=== PATIENT | female | born 1995 | race Caucasian/White ===

== ENCOUNTER 2019-02-15 15:05 | Emergency (ER) | payer OTHER, SELFPAY ==
[2019-02-15] MEDS ORDERED: KETOROLAC 30 MG/ML INJ ONE (15:33)
[2019-02-15] MEDS ORDERED: ONDANSETRON 4 MG/2 ML VIAL ONE (15:33)
[2019-02-15] MEDS ORDERED: NA CHLORIDE 0.9% 1,000 ML ONE (15:33)
[2019-02-15 15:45] LABS: Absolute Lymphocytes (CBC) 1.6 K/uL (0.7-4.9); Basophils % 0.2 % (0-1.3); Hematocrit 40.6 % (36.0-45.0); Lymphocytes % 16.8 % (15.3-44.8); MPV 7.6 fL (7.6-11.3); RBC Red Blood Cell Count 4.89 M/uL (3.86-4.86)
[2019-02-15 16:01] LABS: ALT/SGPT 40 U/L (12-78); AST/SGOT 22 U/L (15-37); Albumin 3.7 g/dL (3.4-5.0); Alkaline Phosphatase 59 U/L (45-117); BUN Blood Urea Nitrogen 11 mg/dL (7-18); Bicarbonate 27 mmol/L (21-32); Bilirubin Direct 0.1 mg/dL (0-0.2); Bilirubin Total 0.4 mg/dL (0.2-1.0); Glucose Level 90 mg/dL (74-106); Lipase 110 U/L (73-393); Potassium 3.5 mmol/L (3.5-5.1); Sodium Level 138 mmol/L (136-145)
--- NOTE | 2019-02-15 17:02 | RAD REPORT ---
EXAM DESCRIPTION: US - Abdomen Exam Limited - 02/15/2019 4:29 pm CLINICAL HISTORY: ABD PAIN COMPARISON: <Comparisons> FINDINGS: The gallbladder demonstrates no gallstones. No pericholecystic fluid or gallbladder wall t hickening. The common bile duct is normal measuring 3 mm. The liver demonstrates no findings of intrahepatic biliary dilatation. IMPRESSION: Unremarkable examination.
--- NOTE | 2019-02-15 17:21 | EDPHYS ---
Physician Documentation [facility] Name: Mara Farris Age: 23 yrs Sex: Female : 1995 Arrival Date: 02/15/2019 Time: 15:06 Bed 7 Private MD: None, None ED Physician Bryan Mclain HPI: 02/15 15:31 This 23 yrs old Female presents to ER via Ambulatory with complaints of kb Abdominal Pain, Vomiting. 15:31 The patient presents with abdominal pain in the right upper quadrant. Onset: The kb symptoms/episode began/occurred last night. The symptoms radiate to right back. Associated signs and symptoms: Pertinent positives: nausea, vomiting, and diarrhea. The symptoms are described as constant. Modifying factors: The symptoms are alleviated by nothing, the symptoms are aggravated by nothing. Severity of pain: At its worst the pain was severe in the emergency department the pain has improved moderately. The patient has not experienced similar symptoms in the past. The patient has not recently seen a physician. 15:33 Pt reports she has had digestive issues for a few months. States "everything I eat goes kb right through me." Reports she started having severe upper abd pain with nausea and vomiting last night. . 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 - Social history:: Smoking status: Patient uses tobacco products, denies chronic smoking, but will smoke occasionally. - Ebola Screening: : No symptoms or risks identified at this time. ROS: 15:30 Constitutional: Negative for fever, chills, and weight loss, ENT: Negative for injury, kb pain, and discharge, Neck: Negative for injury, pain, and swelling, Cardiovascular: Negative for chest pain, palpitations, and edema, Respiratory: Negative for shortness of breath, cough, wheezing, and pleuritic chest pain, Back: Negative for injury and pain, : Negative for injury, bleeding, discharge, and swelling, MS/Extremity: Negative for injury and deformity, Skin: Negative for injury, rash, and discoloration, Neuro: Negative for headache, weakness, numbness, tingling, and seizure. 15:30 Abdomen/GI: Positive for abdominal pain, nausea, vomiting, and diarrhea, Negative for constipation, abdominal cramps, abdominal distension, anorexia. Exam: 15:30 Constitutional: This is a well developed, well nourished patient who is awake, alert, kb and in no acute distress. Head/Face: Normocephalic, atraumatic. ENT: Nares patent. No nasal discharge, no septal abnormalities noted. Tympanic membranes are normal and external auditory canals are clear. Oropharynx with no redness, swelling, or masses, exudates, or evidence of obstruction, uvula midline. Mucous membranes moist. Neck: Trachea midline, no thyromegaly or masses palpated, and no cervical lymphadenopathy. Supple, full range of motion without nuchal rigidity, or vertebral point tenderness. No Meningismus. Chest/axilla: Normal chest wall appearance and motion. Nontender with no deformity. No lesions are appreciated. Cardiovascular: Regular rate and rhythm with a normal S1 and S2. No gallops, murmurs, or rubs. Normal PMI, no JVD. No pulse deficits. Respiratory: Lungs have equal breath sounds bilaterally, clear to auscultation and percussion. No rales, rhonchi or wheezes noted. No increased work of breathing, no retractions or nasal flaring. Back: No spinal tenderness. No costovertebral tenderness. Full range of motion. Skin: Warm, dry with normal turgor. Normal color with no rashes, no lesions, and no evidence of cellulitis. MS/ Extremity: Pulses equal, no cyanosis. Neurovascular intact. Full, normal range of motion. Neuro: Awake and alert, GCS 15, oriented to person, place, time, and situation. Cranial nerves II-XII grossly intact. Motor strength 5/5 in all extremities. Sensory grossly intact. Cerebellar exam normal. Normal gait. 15:30 Abdomen/GI: Inspection: abdomen appears normal, Bowel sounds: normal, in all quadrants, Palpation: soft, in all quadrants, moderate abdominal tenderness, in the right upper quadrant. Vital Signs: 15:19 BP 113 / 68; Pulse 80; Resp 16; Temp 97.5; Pulse Ox 98% on R/A; Weight 104.33 kg; la1 Height 5 ft. 6 in. (167.64 cm); 16:30 BP 118 / 72; Pulse 69; Resp 16; Pulse Ox 98% ; Pain 2/10; jl7 17:36 BP 113 / 66; Pulse 61; Resp 16 S; Pulse Ox 96% on R/A; Pain 7/10; jl7 15:19 Body Mass Index 37.12 (104.33 kg, 167.64 cm) la1 MDM: 15:25 Patient medically screened. kb 15:30 Data reviewed: vital signs, nurses notes. Data interpreted: Pulse oximetry: on room air kb is 98 %. Interpretation: normal. 17:05 Counseling: I had a detailed discussion with the patient and/or guardian regarding: the kb historical points, exam findings, and any diagnostic results supporting the discharge/admit diagnosis, lab results, radiology results, the need for outpatient follow up, a family practitioner, to return to the emergency department if symptoms worsen or persist or if there are any questions or concerns that arise at home. 02/15 15:28 Order name: Basic Metabolic Panel; Complete Time: 16:13 kb 02/15 15:28 Order name: CBC with Diff; Complete Time: 15:52 kb 02/15 15:28 Order name: Hepatic Function; Complete Time: 16:13 kb 02/15 15:28 Order name: Lipase; Complete Time: 16:13 kb 02/15 15:33 Order name: Urine Dipstick--Ancillary (enter results) em1 02/15 15:33 Order name: Urine --Ancillary (enter results) em1 02/15 15:28 Order name: IV Saline Lock; Complete Time: 15:46 kb 02/15 15:28 Order name: Labs collected and sent; Complete Time: 15:46 kb 02/15 15:28 Order name: Urine Dipstick-Ancillary (obtain specimen); Complete Time: 15:32 kb 02/15 15:28 Order name: US Abdomen Limited; Complete Time: 17:03 kb 02/15 17:05 Order name: PO challenge; Complete Time: 17:31 kb Administered Medications: 15:43 Drug: NS 0.9% 1000 ml Route: IV; Rate: 1000 ml; Site: right antecubital; jl7 16:30 Follow up: Response: No adverse reaction; IV Status: Completed infusion; IV Intake: jl7 1000ml 15:43 Drug: Zofran 4 mg Route: IVP; Site: right antecubital; jl7 16:00 Follow up: Response: No adverse reaction; Nausea is decreased jl7 15:46 Drug: TORadol - Ketorolac 15 mg Route: IVP; Site: right antecubital; jl7 16:00 Follow up: Response: No adverse reaction; Pain is decreased jl7 Disposition: 02/15/19 17:19 Discharged to Home. Impression: Upper abdominal pain, unspecified, Diarrhea, unspecified, Nausea with vomiting, unspecified. - Condition is Stable. - Discharge Instructions: Food Choices to Help Relieve Diarrhea, Adult, Nausea and Vomiting, Adult, Kddl-go-Hhme, Abdominal Pain, Adult, Hclz-aq-Exoh, Diarrhea, Adult, Kpqu-bc-Ynec. - Prescriptions for Bentyl 20 mg Oral Tablet - take 1 tablet by ORAL route every 6 hours As needed; 20 tablet. Zofran 4 mg Oral Tablet - take 1 tablet by ORAL route every 6 hours As needed; 20 tablet. - Medication Reconciliation Form, Thank You Letter, Antibiotic Education, Prescription Opioid Use form. - Follow up: Emergency Department; When: As needed; Reason: Worsening of condition. Follow up: Private Physician; When: 2 - 3 days; Reason: Recheck today's complaints, Continuance of care, Re-evaluation by your physician. Addendum: 02/17/2019 09:58 Co-signature as Attending Physician, Bryan Mclain MD I agree with the assessment and c molina plan of care. Signatures: Dispatcher [employer] EDMS Ashley Ivan, DISPENSARY CLERK-C DISPENSARY CLERK-Ckb Bryan Mclain MD MD cha Attema, Lee, RN RN la1 Shreya Maldonado RN RN jl7 Corrections: (The following items were deleted from the chart) 02/15 15:34 15:31 Onset: The symptoms/episode began/occurred just prior to arrival, kb rodolfo 17:38 17:19 02/15/2019 17:19 Discharged to Home. Impression: Upper abdominal pain, jl7 unspecified; Diarrhea, unspecified; Nausea with vomiting, unspecified. Condition is Stable. Forms are Medication Reconciliation Form, Thank You Letter, Antibiotic Education, Prescription Opioid Use. Follow up: Emergency Department; When: As needed; Reason: Worsening of condition. Follow up: Private Physician; When: 2 - 3 days; Reason: Recheck today's complaints, Continuance of care, Re-evaluation by your physician. kb
--- NOTE | 2019-02-15 17:21 | ER ---
Nurse's Notes [facility] Name: Mara Farris Age: 23 yrs Sex: Female : 1995 Arrival Date: 02/15/2019 Time: 15:06 Bed 7 Private MD: None, None Diagnosis: Upper abdominal pain, unspecified;Diarrhea, unspecified;Nausea with vomiting, unspecified Presentation: 02/15 15:18 Presenting complaint: Patient states: Abd pain, N/V/D for the last couple days worst la1 starting last night. Transition of care: patient was not received from another setting of care. Onset of symptoms was February 15, 2019. Risk Assessment: Do you want to hurt yourself or someone else? Patient reports no desire to harm self or others. Initial Sepsis Screen: Does the patient meet any 2 criteria? No. Patient's initial sepsis screen is negative. Does the patient have a suspected source of infection? No. Patient's initial sepsis screen is negative. Care prior to arrival: None. 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 - Social history:: Smoking status: Patient uses tobacco products, denies chronic smoking, but will smoke occasionally. - Ebola Screening: : No symptoms or risks identified at this time. Screenin:30 Abuse screen: Denies threats or abuse. Denies injuries from another. Nutritional jl7 screening: No deficits noted. Tuberculosis screening: No symptoms or risk factors identified. Fall Risk IV access (20 points). Assessment: 15:30 General: Appears in no apparent distress. uncomfortable, Behavior is calm, cooperative, jl7 appropriate for age. Pain: Complains of pain in right upper quadrant Pain currently is 4 out of 10 on a pain scale. at worst was 10 out of 10 on a pain scale. Quality of pain is described as aching. Neuro: Level of Consciousness is awake, alert, obeys commands, Oriented to person, place, time, situation. Cardiovascular: Patient's skin is warm and dry. Respiratory: Airway is patent Respiratory effort is even, unlabored, Respiratory pattern is regular, symmetrical. GI: Abdomen is round non-distended, Stools are reported to be diarrhea. Bowel sounds present X 4 quads. Abd is soft X 4 quads Abdomen is tender to palpation in right upper quadrant and left upper quadrant Reports nausea, vomiting. : No signs and/or symptoms were reported regarding the genitourinary system. EENT: No signs and/or symptoms were reported regarding the EENT system. Derm: Skin is pink, warm \T\ dry. 16:30 Reassessment: Patient appears in no apparent distress at this time. Patient and/or jl7 family updated on plan of care and expected duration. Pain level reassessed. Patient is alert, oriented x 3, equal unlabored respirations, skin warm/dry/pink. Vital Signs: 15:19 BP 113 / 68; Pulse 80; Resp 16; Temp 97.5; Pulse Ox 98% on R/A; Weight 104.33 kg; la1 Height 5 ft. 6 in. (167.64 cm); 16:30 BP 118 / 72; Pulse 69; Resp 16; Pulse Ox 98% ; Pain 2/10; jl7 17:36 BP 113 / 66; Pulse 61; Resp 16 S; Pulse Ox 96% on R/A; Pain 7/10; jl7 15:19 Body Mass Index 37.12 (104.33 kg, 167.64 cm) la1 ED Course: 15:06 Patient arrived in ED. ag5 15:07 None, None is Private Physician. ag5 15:18 Triage completed. la1 15:19 Arm band placed on left wrist. la1 15:23 Ashley Ivan FNP-C is [facility]. kb 15:23 Bryan Mclain MD is Attending Physician. kb 15:27 Shreya Maldonado RN is Primary Nurse. jl7 15:27 Urine collected: clean catch specimen, cloudy, qian colored. jb1 15:30 Patient has correct armband on for positive identification. Placed in gown. Bed in low jl7 position. Call light in reach. Side rails up X 1. Pulse ox on. NIBP on. Warm blanket given. 15:51 Initial lab(s) drawn, Repeat lab(s) drawn. sent to lab. Inserted saline lock: 22 gauge jb1 in right antecubital area, using aseptic technique. Blood collected. 16:28 Ultrasound completed. Patient tolerated well. sg3 16:31 US Abdomen Limited In Process Unspecified. EDMS 17:37 No provider procedures requiring assistance completed. IV discontinued, intact, jl7 bleeding controlled, No redness/swelling at site. Pressure dressing applied. Administered Medications: 15:43 Drug: NS 0.9% 1000 ml Route: IV; Rate: 1000 ml; Site: right antecubital; jl7 16:30 Follow up: Response: No adverse reaction; IV Status: Completed infusion; IV Intake: jl7 1000ml 15:43 Drug: Zofran 4 mg Route: IVP; Site: right antecubital; jl7 16:00 Follow up: Response: No adverse reaction; Nausea is decreased jl7 15:46 Drug: TORadol - Ketorolac 15 mg Route: IVP; Site: right antecubital; jl7 16:00 Follow up: Response: No adverse reaction; Pain is decreased jl7 Intake: 16:30 IV: 1000ml; Total: 1000ml. jl7 Outcome: 17:19 Discharge ordered by MD. reynolds 17:37 Discharged to home ambulatory. jl7 17:37 Condition: stable 17:37 Discharge instructions given to patient, Instructed on discharge instructions, follow up and referral plans. medication usage, Demonstrated understanding of instructions, follow-up care, medications. 17:38 Patient left the ED. jl7 Signatures: Dispatcher [employer] EDMS Cody Ortiz jb1 Ashley Ivan, DRAFTER REFRIGERATION-C DRAFTER REFRIGERATION-Robson Crocker RN RN la1 Shreya Maldonado RN RN jl7 Juliana Koenig sg3 Delaney Slater [facility]
[2019-02-15 20:27] LABS: Urine Blood NEGATIVE (NEG); Urine Glucose NEGATIVE (NEG); Urine Protein TRACE (NEG)
== END 2019-02-15 17:38 | disposition home or self-care (01) ==
LOC: ER 15:05
DX: R10.11 Right upper quadrant pain (principal); R11.2 Nausea with vomiting, unspecified; R19.7 Diarrhea, unspecified; Z72.0 Tobacco use
CPT/HCPCS: 36415; 76705; 80048; 80076; 81003; 81025; 83690; 85025; 96361; 96374; 96375; 99284; J2405; J7030

== ENCOUNTER 2019-03-29 16:44 | Emergency (ER) | payer SELFPAY ==
--- NOTE | 2019-03-29 18:13 | ER ---
Nurse's Notes [facility] Name: Mara Farris Age: 24 yrs Sex: Female : 1995 Arrival Date: 03/29/2019 Time: 16:46 Bed 13 Private MD: Diagnosis: Foreign body in stomach-tongue ring Presentation: 03/29 16:50 Presenting complaint: Patient states: The ball of my tongue ring came off yesterday but la1 I left it in today I took a drink and accidently swallowed the top ball and the bar. Transition of care: patient was not received from another setting of care. Onset of symptoms was March 29, 2019. Risk Assessment: Do you want to hurt yourself or someone else? Patient reports no desire to harm self or others. Initial Sepsis Screen: Does the patient meet any 2 criteria? No. Patient's initial sepsis screen is negative. Does the patient have a suspected source of infection? No. Patient's initial sepsis screen is negative. Care prior to arrival: None. 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 - Social history:: Smoking status: Patient uses tobacco products, denies chronic smoking, but will smoke occasionally. - Ebola Screening: : No symptoms or risks identified at this time. Screenin:55 Abuse screen: Denies threats or abuse. Nutritional screening: No deficits noted. rb1 Tuberculosis screening: No symptoms or risk factors identified. Fall Risk None identified. Assessment: 16:55 General: Appears in no apparent distress. comfortable, Behavior is calm, cooperative. rb1 Pain: Complains of pain in epigastric area Pain currently is 3 out of 10 on a pain scale. Pain began 40 minutes ago. Neuro: Level of Consciousness is awake, alert, obeys commands, Oriented to person, place, time, situation. Cardiovascular: Capillary refill < 3 seconds is brisk in bilateral fingers. Respiratory: Airway is patent Respiratory effort is even, unlabored, Respiratory pattern is regular, symmetrical. GI: No signs and/or symptoms were reported involving the gastrointestinal system. : No signs and/or symptoms were reported regarding the genitourinary system. Derm: Skin is pink, warm \T\ dry. 17:55 Reassessment: Patient appears in no apparent distress at this time. No changes from rb1 previously documented assessment. Sister at bedside. 18:35 Reassessment: Patient appears in no apparent distress at this time. Patient and/or rb1 family updated on plan of care and expected duration. Pain level reassessed. Patient is alert, oriented x 3, equal unlabored respirations, skin warm/dry/pink. Pt. is anxious about being transferred. Educated the pt. on the need to be transferred and why. Pt. verbalized understanding. 18:48 Reassessment: Called report to BRANDO Neri at [facility]. Information from the [facility] was rb1 given. All questions asked and answered. 19:31 Reassessment: Patient is alert, oriented x 3, equal unlabored respirations, skin lp1 warm/dry/pink. [facility] at bedside for transfer. Vital Signs: 16:49 BP 122 / 88; Pulse 91; Resp 16; Temp 97.4; Pulse Ox 100% on R/A; Weight 108.86 kg; la1 Height 5 ft. 6 in. (167.64 cm); 17:55 BP 125 / 93; Pulse 78; Resp 19; Pulse Ox 98% on R/A; Pain 3/10; rb1 18:50 BP 107 / 63; Pulse 90; Resp 17; Temp 97.4(O); Pulse Ox 97% on R/A; Pain 3/10; rb1 16:49 Body Mass Index 38.74 (108.86 kg, 167.64 cm) la1 ED Course: 16:46 Patient arrived in ED. as 16:47 Ashley Ivan FNP-C is PHCP. kb 16:47 Faiza Barone MD is Attending Physician. kb 16:49 Arm band placed on left wrist. la1 16:51 Triage completed. la1 16:54 Nkechi Hummel, BRANOD is Primary Nurse. rb1 16:55 Patient has correct armband on for positive identification. Bed in low position. Call rb1 light in reach. Side rails up X 1. Pulse ox on. NIBP on. 18:03 initiated a transfer with Mikel Valentino from the [facility] transfer center. eb 18:10 X-ray completed. Portable x-ray completed in exam room. Patient tolerated procedure tm4 well. 18:13 Abdomen 1 View (KUB) XRAY In Process Unspecified. EDMS 18:14 Chest Single View XRAY In Process Unspecified. EDMS 18:14 connected the GI cathodic protection technician for [facility] with Ashely DIAMOND MERCHANT for patient transfer eb consultation. 18:23 connected the hospitalist cathodic protection technician Dr. Nuñez from [facility] with Ashley DIAMOND MERCHANT for eb patient transfers consultation. 18:30 Inserted saline lock: 22 gauge in right antecubital area, using aseptic technique. rb1 Blood collected. 18:34 administrative approval given by Mikel Valentino, patient has been accepted to [facility] bed 1550/ Joaquin Pitts has accepted the patient in transfer/ report to be called to [phone]. 18:58 Abdomen 1 View (KUB) XRAY In Process Unspecified. EDMS 19:30 No provider procedures requiring assistance completed. Patient transferred, IV remains lp1 in place. Administered Medications: No medications were administered Outcome: 18:12 ER care complete, transfer ordered by . kb 19:31 Transferred by ground EMS to [facility], Transfer form completed. lp1 X-rays sent w/ patient. 19:31 Condition: stable 19:31 Instructed on the need for transfer. 19:31 Patient left the ED. lp1 Signatures: Dispatcher [employer] EDMS Ashley Ivan, STRUCTURAL STEEL WORKER-C STRUCTURAL STEEL WORKER-Delicia Cyr tm4 Ml Gomez Laura, RN RN lp1 Robson Dia RN RN la1 Nkechi Hummel, RN RN rb1 Marcia Mckeon
--- NOTE | 2019-03-29 18:13 | EDPHYS ---
Physician Documentation [facility] Name: Mara Farris Age: 24 yrs Sex: Female : 1995 Arrival Date: 03/29/2019 Time: 16:46 Bed 13 Private MD: ED Physician Faiza Barone HPI: 03/29 17:42 This 24 yrs old Female presents to ER via Ambulatory with complaints of kb Swallowed Foreign Body - Tongue Ring. 17:43 The patient or guardian reports the patient has a suspected foreign body, tongue ring. kb The reported likely foreign body is piece of jewelry. Onset: The symptoms/episode began/occurred just prior to arrival. Current symptoms: none. Treatment Prior to Arrival: none. The patient has not experienced similar symptoms in the past. The patient has not recently seen a physician. Pt reports she lost the ball of her tongue ring yesterday, but left the bar in. Today was drinking water and the bar and top ball went down. . 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 - Social history:: Smoking status: Patient uses tobacco products, denies chronic smoking, but will smoke occasionally. - Ebola Screening: : No symptoms or risks identified at this time. ROS: 17:41 Constitutional: Negative for fever, chills, and weight loss, Neck: Negative for injury, kb pain, and swelling, Cardiovascular: Negative for chest pain, palpitations, and edema, Respiratory: Negative for shortness of breath, cough, wheezing, and pleuritic chest pain, Abdomen/GI: Negative for abdominal pain, nausea, vomiting, diarrhea, and constipation, Back: Negative for injury and pain, MS/Extremity: Negative for injury and deformity, Skin: Negative for injury, rash, and discoloration, Neuro: Negative for headache, weakness, numbness, tingling, and seizure. Exam: 17:41 Constitutional: This is a well developed, well nourished patient who is awake, alert, kb and in no acute distress. Head/Face: Normocephalic, atraumatic. ENT: Nares patent. No nasal discharge, no septal abnormalities noted. Tympanic membranes are normal and external auditory canals are clear. Oropharynx with no redness, swelling, or masses, exudates, or evidence of obstruction, uvula midline. Mucous membranes moist. Neck: Trachea midline, no thyromegaly or masses palpated, and no cervical lymphadenopathy. Supple, full range of motion without nuchal rigidity, or vertebral point tenderness. No Meningismus. Chest/axilla: Normal chest wall appearance and motion. Nontender with no deformity. No lesions are appreciated. Cardiovascular: Regular rate and rhythm with a normal S1 and S2. No gallops, murmurs, or rubs. Normal PMI, no JVD. No pulse deficits. Respiratory: Lungs have equal breath sounds bilaterally, clear to auscultation and percussion. No rales, rhonchi or wheezes noted. No increased work of breathing, no retractions or nasal flaring. Abdomen/GI: Soft, non-tender, with normal bowel sounds. No distension or tympany. No guarding or rebound. No evidence of tenderness throughout. Back: No spinal tenderness. No costovertebral tenderness. Full range of motion. Skin: Warm, dry with normal turgor. Normal color with no rashes, no lesions, and no evidence of cellulitis. MS/ Extremity: Pulses equal, no cyanosis. Neurovascular intact. Full, normal range of motion. Neuro: Awake and alert, GCS 15, oriented to person, place, time, and situation. Cranial nerves II-XII grossly intact. Motor strength 5/5 in all extremities. Sensory grossly intact. Cerebellar exam normal. Normal gait. Vital Signs: 16:49 BP 122 / 88; Pulse 91; Resp 16; Temp 97.4; Pulse Ox 100% on R/A; Weight 108.86 kg; la1 Height 5 ft. 6 in. (167.64 cm); 17:55 BP 125 / 93; Pulse 78; Resp 19; Pulse Ox 98% on R/A; Pain 3/10; rb1 18:50 BP 107 / 63; Pulse 90; Resp 17; Temp 97.4(O); Pulse Ox 97% on R/A; Pain 3/10; rb1 16:49 Body Mass Index 38.74 (108.86 kg, 167.64 cm) la1 MDM: 16:52 Patient medically screened. kb 17:42 Data reviewed: vital signs, nurses notes. Data interpreted: Pulse oximetry: on room air kb is 100 %. Interpretation: normal. 18:05 ED course: Discussed x-ray with Dr Barone. Transfer initiated to [facility] for GI. kb 18:11 Counseling: I had a detailed discussion with the patient and/or guardian regarding: the kb historical points, exam findings, and any diagnostic results supporting the discharge/admit diagnosis, radiology results, the need to transfer to another facility, [facility] does not immediately have the required specialist. 18:17 ED course: [facility] accepts pt for consult (Dr Daniel). Wants repeat KUB to see kb if FB moves down prior to transfer. 18:27 ED course: Dr Nuñez accepts pt for transfer. kb 03/29 18:25 Order name: CBC with Diff; Complete Time: 18:54 kb 03/29 18:25 Order name: Basic Metabolic Panel; Complete Time: 18:54 kb 03/29 16:52 Order name: Abdomen 1 View (KUB) XRAY; Complete Time: 18:56 kb 03/29 16:52 Order name: Chest Single View XRAY; Complete Time: 18:59 kb 03/29 18:21 Order name: IV Start; Complete Time: 18:34 kb 03/29 18:27 Order name: Abdomen 1 View (KUB) XRAY; Complete Time: 19:04 kb Administered Medications: No medications were administered Disposition: 03/30 07:14 Co-signature as Attending Physician, Faiza Barone MD. ma2 Disposition: 03/29/19 18:12 Transfer ordered to [facility]. Diagnosis is Foreign body in stomach - tongue ring. - Reason for transfer: Higher level of care. - Accepting physician is [facility]. - Condition is Stable. - Problem is new. - Symptoms are unchanged. Signatures: Dispatcher [employer] EDMS Ashley Ivan, ANNA BARGER-Christie Lopez, RN RN lp1 Robson Dia RN RN la1 Faiza Barone MD MD ma2 Corrections: (The following items were deleted from the chart) 03/29 18:28 18:17 ED course: [facility] accepts pt for consult (Dr Daniel). kb kb 19:31 18:12 03/29/2019 18:12 Transfer ordered to [facility]. Diagnosis is lp1 Foreign body in stomach - tongue ring. Reason for transfer: Higher level of care. Accepting physician is [facility]. Condition is Stable. Problem is new. Symptoms are unchanged. kb
[2019-03-29 18:40] LABS: Absolute Lymphocytes (CBC) 2.2 K/uL (0.7-4.9); Basophils % 0.6 % (0-1.3); Hematocrit 40.8 % (36.0-45.0); Lymphocytes % 21.4 % (15.3-44.8); MPV 7.8 fL (7.6-11.3); RBC Red Blood Cell Count 4.98 M/uL (3.86-4.86)
[2019-03-29 18:52] LABS: Potassium 3.8 mmol/L (3.5-5.1)
--- NOTE | 2019-03-29 18:52 | RAD REPORT ---
EXAM DESCRIPTION: RAD - Abdomen 1 View (KUB) - 03/29/2019 6:12 pm CLINICAL HISTORY: fb Pain COMPARISON: <Comparisons> FINDINGS: The bowel gas pattern is non-obstructive. No evidence of free air or pneumatosis. No suspi cious calcifications. Metallic foreign body projects over the distal stomach.
--- NOTE | 2019-03-29 18:53 | RAD REPORT ---
EXAM DESCRIPTION: RAD - Chest Single View - 03/29/2019 6:12 pm CLINICAL HISTORY: fb Chest pain. COMPARISON: CHEST PA AND LAT 2 VIEW dated 01/21/2014 FINDINGS: Portable technique limits examination quality. The lungs are grossly clear. The heart is normal in size. No displaced fractures. IMPRESSION: No acute intrathoracic process suspected.
--- NOTE | 2019-03-29 19:01 | RAD REPORT ---
EXAM DESCRIPTION: RAD - Abdomen 1 View (KUB) - 03/29/2019 6:56 pm CLINICAL HISTORY: FB;Abd pain Pain COMPARISON: <Comparisons> FINDINGS: The bowel gas pattern is non-obstructive. No evidence of free air or pneumatosis. No suspi cious calcifications. A metallic foreign body appears to be present in the distal stomach.
[2019-03-29 19:44] VITALS: TEMP 97.4
[2019-03-29 19:48] VITALS: BP 107/63; O2SAT 97
== END 2019-03-29 19:31 | disposition short-term general hospital (02) ==
LOC: ER 16:44
DX: T18.2XXA Foreign body in stomach, initial encounter (principal); X58.XXXA Exposure to other specified factors, initial encounter; Z72.0 Tobacco use
CPT/HCPCS: 36415; 71045; 74018; 80048; 85025; 99285

== ENCOUNTER 2019-05-15 09:21 | Emergency (ER) | payer SELFPAY ==
--- NOTE | 2019-05-15 10:53 | EDPHYS ---
Physician Documentation [facility] Name: Mara Farris Age: 24 yrs Sex: Female : 1995 Arrival Date: 05/15/2019 Time: 09:27 Bed 11 Private MD: ED Physician Jacky White HPI: 05/15 10:11 This 24 yrs old Female presents to ER via Ambulatory with complaints of Sore jmm Throat, Cough. 10:11 The patient presents with sore throat. Onset: The symptoms/episode began/occurred jmm gradually, 2 day(s) ago. Modifying factors: The symptoms are alleviated by nothing, the symptoms are aggravated by nothing. Associated signs and symptoms: Pertinent positives: chills, cough. This is a 24 year old female with no chronic medical conditions that presents to the ED with complaints of sore throat, cough, congestion beginning 2 days ago. Patient states family members have been recently diagnosed with tonsillitis. . 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 - Social history:: Smoking status: Patient uses tobacco products, denies chronic smoking, but will smoke occasionally. - Ebola Screening: : No symptoms or risks identified at this time. ROS: 10:11 Cardiovascular: Negative for chest pain, palpitations, and edema. jmm 10:11 Constitutional: Positive for chills. 10:11 ENT: Positive for sore throat. 10:11 Respiratory: Positive for cough. 10:11 Abdomen/GI: Negative for abdominal pain, nausea and vomiting, diarrhea. 10:11 All other systems are negative. Exam: 10:11 Constitutional: This is a well developed, well nourished patient who is awake, alert, jmm and in no acute distress. Head/Face: atraumatic. Eyes: EOMI, no conjunctival erythema appreciated 10:11 Chest/axilla: Normal chest wall appearance and motion. 10:11 Abdomen/GI: Non distended, soft Back: Normal ROM Skin: General appearance color normal MS/ Extremity: Moves all extremities, no obvious deformities appreciated, no edema noted to the lower extremities Neuro: Awake and alert, normal gait Psych: Behavior is normal, Mood is normal, Patient is cooperative and pleasant 10:11 ENT: TM's: are normal, Posterior pharynx: Uvula: normal, midline, erythema, that is moderate. 10:11 Neck: ROM/movement: is normal. 10:11 Cardiovascular: Rate: normal, Rhythm: regular. 10:11 Respiratory: the patient does not display signs of respiratory distress, Respirations: normal, Breath sounds: are clear throughout. Vital Signs: 09:45 BP 124 / 71; Pulse 80; Resp 16 S; Temp 98.4(TE); Pulse Ox 97% on R/A; Weight 108.86 kg aa5 (R); Height 5 ft. 6 in. (167.64 cm) (R); Pain 410; 09:45 Body Mass Index 38.74 (108.86 kg, 167.64 cm) aa5 MDM: 10:11 Patient medically screened. [facility] 10:50 Data reviewed: vital signs, nurses notes. Counseling: I had a detailed discussion with chinyere the patient and/or guardian regarding: the historical points, exam findings, and any diagnostic results supporting the discharge/admit diagnosis, lab results, the need for outpatient follow up, to return to the emergency department if symptoms worsen or persist or if there are any questions or concerns that arise at home. ED course: Patient is alert and non toxic in appearance in the ED. Patient given strict return precautions. Patient understood and agrees with the plan of care. . 05/15 09:57 Order name: Flu; Complete Time: 10:50 [facility] 05/15 09:57 Order name: Strep; Complete Time: 10:50 [facility] 05/15 10:40 Order name: Throat Culture EDMS Administered Medications: No medications were administered Disposition: 11:49 Co-signature as Attending Physician, Jacky White MD I agree with the assessment and kdr plan of care. Disposition: 05/15/19 10:51 Discharged to Home. Impression: Acute pharyngitis, Acute upper respiratory infection, unspecified. - Condition is Stable. - Discharge Instructions: Pharyngitis, Upper Respiratory Infection, Adult. - Prescriptions for Amoxicillin 875 mg Oral Tablet - take 1 tablet by ORAL route every 12 hours for 10 days; 20 tablet. - Medication Reconciliation Form, Thank You Letter, Antibiotic Education, Prescription Opioid Use form. - Follow up: Private Physician; When: 2 - 3 days; Reason: Recheck today's complaints, Continuance of care, Re-evaluation by your physician. Signatures: Dispatcher [employer] EDJacky Paulino MD MD kdr Mickail, Joel, PA PA jmm Calderon, Audri, RN RN aa5 Corrections: (The following items were deleted from the chart) 11:08 10:51 05/15/2019 10:51 Discharged to Home. Impression: Acute pharyngitis; Acute upper aa5 respiratory infection, unspecified. Condition is Stable. Forms are Medication Reconciliation Form, Thank You Letter, Antibiotic Education, Prescription Opioid Use. Follow up: Private Physician; When: 2 - 3 days; Reason: Recheck today's complaints, Continuance of care, Re-evaluation by your physician. chinyere
--- NOTE | 2019-05-15 10:53 | ER ---
Nurse's Notes [facility] Name: Mara Farris Age: 24 yrs Sex: Female : 1995 Arrival Date: 05/15/2019 Time: 09:27 Bed 11 Private MD: Diagnosis: Acute pharyngitis;Acute upper respiratory infection, unspecified Presentation: 05/15 09:44 Presenting complaint: Patient states: sore throat and cough that began last night. aa5 Transition of care: patient was not received from another setting of care. Onset of symptoms was May 2019. Risk Assessment: Do you want to hurt yourself or someone else? Patient reports no desire to harm self or others. Initial Sepsis Screen: Does the patient meet any 2 criteria? No. Patient's initial sepsis screen is negative. Does the patient have a suspected source of infection? No. Patient's initial sepsis screen is negative. Care prior to arrival: None. 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 - Social history:: Smoking status: Patient uses tobacco products, denies chronic smoking, but will smoke occasionally. - Ebola Screening: : No symptoms or risks identified at this time. Screenin:00 Abuse screen: Denies threats or abuse. Nutritional screening: No deficits noted. aa5 Tuberculosis screening: No symptoms or risk factors identified. Fall Risk None identified. Assessment: 09:55 General: Appears comfortable, Behavior is calm, cooperative. Pain: Complains of pain in aa5 throat. Neuro: Level of Consciousness is awake, alert, obeys commands, Oriented to person, place, time, situation. Cardiovascular: Heart tones S1 S2 present Rhythm is regular. Respiratory: Reports cough that is dry, Airway is patent Respiratory effort is even, unlabored, Respiratory pattern is regular, symmetrical, Breath sounds are clear bilaterally. GI: No signs and/or symptoms were reported involving the gastrointestinal system. : No signs and/or symptoms were reported regarding the genitourinary system. EENT: Throat is reddened. Derm: Skin is pink, warm \T\ dry. Musculoskeletal: Range of motion: intact in all extremities. 11:05 Reassessment: Patient is alert, oriented x 3, equal unlabored respirations, skin aa5 warm/dry/pink. Vital Signs: 09:45 BP 124 / 71; Pulse 80; Resp 16 S; Temp 98.4(TE); Pulse Ox 97% on R/A; Weight 108.86 kg aa5 (R); Height 5 ft. 6 in. (167.64 cm) (R); Pain 4/10; 09:45 Body Mass Index 38.74 (108.86 kg, 167.64 cm) aa5 ED Course: 09:27 Patient arrived in ED. as 09:43 Arm band placed on. aa5 09:43 Patient has correct armband on for positive identification. aa5 09:44 Triage completed. aa5 09:52 Radha Tamayo, RN is Primary Nurse. aa5 09:54 Ray Watkins PA is PHCP. [facility] 09:54 Jacky White MD is Attending Physician. [facility] 11:08 No provider procedures requiring assistance completed. Patient did not have IV access aa5 during this emergency room visit. Administered Medications: No medications were administered Outcome: 10:51 Discharge ordered by . [facility] 11:05 Discharged to home ambulatory. aa5 11:05 Condition: good 11:05 Discharge instructions given to patient, Instructed on discharge instructions, follow up and referral plans. medication usage, Demonstrated understanding of instructions, follow-up care, medications, Prescriptions given X 1. 11:08 Patient left the ED. aa5 Signatures: Ray Watkins PA PA jmm Martinez, Amelia as Calderon, Audri, RN RN aa5
[2019-05-15 14:20] VITALS: BP 124/71; TEMP 98.4; O2SAT 97
--- OUTSIDE RECORDS SUMMARY | 2019-05-19 03:05 | XMS REPORT ---
:1995 [facility] Address [address] [place] [address] [address]. [address]un [address] [place] [address] Care Team Providers Name Role Phone ROD VERDUGO Unavailable Unavailable Problems This patient has no known problems. Allergies, Adverse Reactions, Alerts This patient has no known allergies or adverse reactions. Medications This patient has no known medications. Results Test Description Test Time Test Comments Text Results Atomic Results Result Comments RAD, ABDOMEN/KUB, 1 2019-04-02 Reason for FINAL REPORT PATIENT VIEW AP 09:13:00 exam:->Confirm Foreign ID: [id number] KUB Body passing History provided: Foreign body evaluation Comparison exam: 04/01/2019 Yesterday's KUB did not reveal a radiopaque foreign body. Today's KUB also does not reveal a radiopaque foreign body. Bowel gas pattern is normal. Signed: Terrell Sahu Verified Date/Time: 04/02/2019 09:13:00 Reading Location: [facility] Radiology Reading Room , ABDOMEN/KUB, 1 2019-04-02 Reason for FINAL REPORT PATIENT VIEW AP 03:13:00 exam:->Foreign Body ID: [id number] Abdomen ingestion, follow up one view Comparison: image Abdominal radiograph 04/01/2019, 6:50 AM. Reason for exam: Foreign Body ingestion, follow up image Findings: Supine view of the abdomen was obtained. There is no bowel obstruction. There is no radiopaque foreign body. The visualized lungs are clear. The osseous structures are unremarkable. Impression:No radiopaque foreign body. No bowel obstruction. Signed: Yumiko Oropeza Verified Date/Time: 04/02/2019 03:13:21 , ABDOMEN/KUB, 1 2019-04-01 Reason for FINAL REPORT PATIENT VIEW AP 08:07:00 exam:->Foreign body ID: [id number] RAD, ingestion, follow up ABDOMEN/KUB, 1 VIEW AP CLINICAL INDICATION: Foreign body ingestion, follow up COMPARISON: None TECHNIQUE: Single, frontal radiograph of the abdomen. FINDINGS: The bowel gas pattern is nonspecific, but nonobstructive. No abnormal mass or ascites is detected. No significant calcifications are present. The regional skeleton is intact. IMPRESSION: Nonspecific, nonobstructive bowel gas pattern. Radiopaque density projects over the left colon. Signed: Juliana Mcconnell Verified Date/Time: 04/01/2019 08:07:22 Reading Location: [facility] Radiology Reading Room , ABDOMEN/KUB, 1 2019-03-31 Reason for FINAL REPORT PATIENT VIEW AP 23:49:00 exam:->Foreign body ID: [id number] ingestion, follow up INDICATION:Swallowed tongue stud. COMPARISON: March 31 at 5:50 PM. TECHNIQUE: Abdomen radiograph one view. FINDINGS / IMPRESSION:Metallic stud is unchanged in position, in the medial left abdomen.Bowel gas pattern normal. No obvious free intraperitoneal air. Signed: Malachi Arnett Verified Date/Time: 03/31/2019 23:49:22 Reading Location: [address] Consult Reading Room , ABDOMEN/KUB, 1 2019-03-31 Reason for FINAL REPORT PATIENT VIEW AP 22:24:00 exam:->swallowed ID: [id number] tongue ring, needs INDICATION:Swallowed serial KUBs till ring tongue stud. passes in stool COMPARISON: March 31 at 9:08 AM TECHNIQUE: Abdomen radiograph one view. FINDINGS / IMPRESSION:Metallic stud is unchanged in position, in the medial left abdomen.Bowel gas pattern normal. No obvious free intraperitoneal air. Signed: Malachi Arnett Verified Date/Time: 03/31/2019 22:24:04 Reading Location: [address] Consult Reading Room EN, URINE 2019-03-31 18:05:00 Test Item Value Reference Range Comments TEST URINE (BEAKER) (test dpdv=060) Negative RAD, ABDOMEN/KUB, 1 VIEW [id number] 10:02:00Reason for exam:->Foreign Body Ingestion, follow upFINAL REPORT RAD, ABDOMEN/KUB, 1 VIEW AP CLINICAL INDICATION: Foreign Body Ingestion, follow up COMPARISON: None TECHNIQUE: Single, frontal radiograph of the abdomen. FINDINGS: The bowel gas pattern is nonspecific, but nonobstructive. No abnormal mass or ascites is detected.No significant calcifications are present. The regional skeleton is intact. IMPRESSION: Nonspecific, nonobstructive bowel gas pattern. Moderate stool burden. Radiopaque density overlies the transverse colon, likely not significantly changed in the interim Signed: Juliana Mcconnell Verified Date/Time: 03/31/2019 10:02:48 Reading Location: [facility] Radiology Reading Room Electronicallysigned by: JULIANA MCCONNELL MD on 2018 10:02 AMRAD, ABDOMEN/KUB, 1 VIEW [id number] 21:49:00Reason for exam:-> Foreign Body Ingestion, follow upFINAL REPORT Abdomen one view Comparison: Abdominal radiograph performed earlier on the same day. Reason for exam: Foreign Body Ingestion, follow up Findings/impression: There is a linear metallic density in the right mid abdomen consistent with ingested foreign body possibly in the ascending colon, similar to prior exam. There is no dilated bowel loops. The osseous structuresare unremarkable. Signed: Yumiko Oropeza Verified Date/Time: 03/30/2019 21:49:32 RAD, ABDOMEN/KUB, 1 VIEW [id number] 12:58:00Reason for exam:->foreign body ingestion, follow upFINAL REPORT Abdomen. HISTORY: Foreign body ingestion, follow-up. COMPARISON STUDY: March 30, 2019. FINDINGS: A single supine view of the abdomen demonstrates a linear metallic body projecting over the right side of the mid abdominal region, in similar position to previous. No dilated loops of bowel are seen. This film is insensitive for the detection of free air. IMPRESSION: Foreign body in the same region as on the prior radiograph. Signed: Arden Donatoeport Verified Date/Time: 03/30/2019 12:58:06 Reading Location: [address] Ortho Consult Reading Room RAD, ABDOMEN/KUB, 1 VIEW [id number] 09:33:00Reason for exam:->FBFINAL REPORT Technique: Frontal image of the abdomen FINDINGS: A 2 cm radiopaque structure projects over the right abdomen, uncertain if this is external to the patient, intraperitoneal or intraluminal. Correlation with history recommended. Bowel gas pattern is nonspecific. Evaluation for free intraperitoneal air is limited due to positioning and technique. Signed: Gayle Galicia MDReport Verified Date/ Time: 03/30/2019 09:33:00 Reading Location: [place] [id number] Transitional ReadingRoom 09: 33 AMBASIC METABOLIC [id number] 07:47:00 Test Item Value Reference Range Comments SODIUM (BEAKER) (test 138 meq/L 136-145 nanr=379) POTASSIUM (BEAKER) (test 3.8 meq/L 3.5-5.1 tfsh=980) CHLORIDE (BEAKER) (test 107 meq/L 98-107 vfoa=504) CO2 (BEAKER) (test 24 meq/L 22-29 rkuw=730) BLOOD UREA NITROGEN 14 mg/dL 7-21 (BEAKER) (test ywsz=943) CREATININE (BEAKER) (test 0.70 mg/dL 0.57-1.25 hqfw=860) GLUCOSE RANDOM (BEAKER) 78 mg/dL 70-105 (test xkpz=403) CALCIUM (BEAKER) (test 8.9 mg/dL 8.4-10.2 prlh=260) EGFR (BEAKER) (test 101 mL/min/1.73 sq m ESTIMATED GFR IS NOT ujur=9463) ACCURATE CREATININE CLEARANCE IN PREDICTING GLOMERULAR FILTRATION RATE. ESTIMATED GFR IS NOT APPLICABLE FOR DIALYSIS PATIENTS. CBC (HEMOGRAM ONLY)2019-03-30 06:24:00 Test Item Value Reference Range Comments WHITE BLOOD CELL COUNT (BEAKER) (test vdvd=339) 8.5 K/ L 3.5-10.5 RED BLOOD CELL COUNT (BEAKER) (test uwxb=649) 4.82 M/ L 3.93-5.22 HEMOGLOBIN (BEAKER) (test myac=045) 13.3 GM/DL 11.2-15.7 HEMATOCRIT (BEAKER) (test gujt=898) 41.2 % 34.1-44.9 MEAN CORPUSCULAR VOLUME (BEAKER) (test zrqb=099) 85.5 fL 79.4-94.8 MEAN CORPUSCULAR HEMOGLOBIN (BEAKER) (test 27.6 pg 25.6-32.2 liup=916) MEAN CORPUSCULAR HEMOGLOBIN CONC (BEAKER) (test 32.3 GM/DL 32.2-35.5 uhrh=102) RED CELL DISTRIBUTION WIDTH (BEAKER) (test 13.0 % 11.7-14.4 xtrb=863) PLATELET COUNT (BEAKER) (test mymf=542) 270 K/CU MM 150-450 MEAN PLATELET VOLUME (BEAKER) (test sryj=947) 9.7 fL 9.4-12.3 NUCLEATED RED BLOOD CELLS (BEAKER) (test 0 /100 WBC 0-0 srpj=994)
== END 2019-05-15 11:08 | disposition home or self-care (01) ==
LOC: ER 09:21
DX: J06.9 Acute upper respiratory infection, unspecified (principal); J02.9 Acute pharyngitis, unspecified; Z72.0 Tobacco use
CPT/HCPCS: 87070; 87081; 87804; 99282

== ENCOUNTER 2019-07-13 17:38 | Emergency (ER) | payer SELFPAY ==
--- OUTSIDE RECORDS SUMMARY | 2019-07-13 17:41 | XMS REPORT ---
:1995 Author Organization [facility] Address [address] [place] [address] Dr. Chun [address] [place] [address] Care Team Providers Name Role Phone ROD [...] PATIENT VIEW AP 09:13:00 exam:->Confirm Foreign ID: [id number] KUB Body passing History provided: Foreign body evaluation Comparison exam: 04/01/2019 Yesterday's KUB did not reveal a radiopaque foreign body. Today's KUB also does not reveal a radiopaque foreign body. Bowel gas pattern is normal. Signed: Terrell Sahu Verified Date/Time: 04/02/2019 09:13:00 Reading Location: [facility] Radiology Reading Room , ABDOMEN/KUB, 1 2019-04-02 Reason for FINAL REPORT PATIENT VIEW AP 03:13:00 exam:->Foreign Body ID: [id number] Abdomen ingestion, follow up one view Comparison: [...] PATIENT VIEW AP 08:07:00 exam:->Foreign body ID: [id number] RAD, ingestion, follow up ABDOMEN/KUB, 1 VIEW [...] Mcconnell Verified Date/Time: 04/01/2019 08:07:22 Reading Location: [facility] Radiology Reading Room , ABDOMEN/KUB, 1 2019-03-31 Reason for FINAL REPORT PATIENT VIEW AP 23:49:00 exam:->Foreign body ID: [id number] ingestion, follow up INDICATION:Swallowed tongue stud. COMPARISON: March 31 at 5:50 PM. TECHNIQUE: Abdomen radiograph one view. FINDINGS / IMPRESSION:Metallic stud is unchanged in position, in the medial left abdomen.Bowel gas pattern normal. No obvious free intraperitoneal air. Signed: Malachi Arnett Verified Date/Time: 03/31/2019 23:49:22 Reading Location: [address] Consult Reading Room , ABDOMEN/KUB, 1 2019-03-31 Reason for FINAL REPORT PATIENT VIEW AP 22:24:00 exam:->swallowed ID: [id number] tongue ring, needs INDICATION:Swallowed serial KUBs till ring tongue stud. passes in stool COMPARISON: March 31 at 9:08 AM TECHNIQUE: Abdomen radiograph one view. FINDINGS / IMPRESSION:Metallic stud is unchanged in position, in the medial left abdomen.Bowel gas pattern normal. No obvious free intraperitoneal air. Signed: Malachi Arnett Verified Date/Time: 03/31/2019 22:24:04 Reading Location: [address] Consult Reading Room EN, URINE 2019-03-31 18:05:00 Test Item Value Reference Range Comments TEST URINE (BEAKER) (test ghww=211) Negative RAD, ABDOMEN/KUB, 1 VIEW [id number] 10:02:00Reason for exam:->Foreign Body Ingestion, follow upFINAL [...] Mcconnell Verified Date/Time: 03/31/2019 10:02:48 Reading Location: [facility] Radiology Reading Room Electronicallysigned by: JULIANA MCCONNELL MD on 2018 10:02 AMRAD, ABDOMEN/KUB, 1 VIEW [id number] 21:49:00Reason for exam:-> Foreign Body Ingestion, follow [...] Date/Time: 03/30/2019 21:49:32 RAD, ABDOMEN/KUB, 1 VIEW [id number] 12:58:00Reason for exam:->foreign body ingestion, follow upFINAL [...] [place] Verified Date/Time: 03/30/2019 12:58:06 Reading Location: [address] Ortho Consult Reading Room RAD, ABDOMEN/KUB, 1 VIEW [id number] 09:33:00Reason for exam:->FBFINAL REPORT Technique: Frontal image [...] Verified Date/ Time: 03/30/2019 09:33:00 Reading Location: [place] [id number] Transitional ReadingRoom 09: 33 AMBASIC METABOLIC [id number] 07:47:00 Test Item Value Reference Range Comments SODIUM (BEAKER) (test 138 meq/L 136-145 kbgi=993) POTASSIUM (BEAKER) (test 3.8 meq/L 3.5-5.1 ahva=510) CHLORIDE (BEAKER) (test 107 meq/L 98-107 unib=695) CO2 (BEAKER) (test 24 meq/L 22-29 olgg=278) BLOOD UREA NITROGEN 14 mg/dL 7-21 (BEAKER) (test mknu=111) CREATININE (BEAKER) (test 0.70 mg/dL 0.57-1.25 vxum=963) GLUCOSE RANDOM (BEAKER) 78 mg/dL 70-105 (test whcz=670) CALCIUM (BEAKER) (test 8.9 mg/dL 8.4-10.2 etao=788) EGFR (BEAKER) (test 101 mL/min/1.73 sq m ESTIMATED GFR IS NOT hxfh=9535) ACCURATE CREATININE CLEARANCE IN PREDICTING GLOMERULAR FILTRATION RATE. ESTIMATED GFR IS NOT APPLICABLE FOR DIALYSIS PATIENTS. CBC (HEMOGRAM ONLY)2019-03-30 06:24:00 Test Item Value Reference Range Comments WHITE BLOOD CELL COUNT (BEAKER) (test fvhx=926) 8.5 K/ L 3.5-10.5 RED BLOOD CELL COUNT (BEAKER) (test gnwl=849) 4.82 M/ L 3.93-5.22 HEMOGLOBIN (BEAKER) (test tavf=432) 13.3 GM/DL 11.2-15.7 HEMATOCRIT (BEAKER) (test exly=054) 41.2 % 34.1-44.9 MEAN CORPUSCULAR VOLUME (BEAKER) (test oimy=577) 85.5 fL 79.4-94.8 MEAN CORPUSCULAR HEMOGLOBIN (BEAKER) (test 27.6 pg 25.6-32.2 hfpp=815) MEAN CORPUSCULAR HEMOGLOBIN CONC (BEAKER) (test 32.3 GM/DL 32.2-35.5 imoj=380) RED CELL DISTRIBUTION WIDTH (BEAKER) (test 13.0 % 11.7-14.4 fhnb=547) PLATELET COUNT (BEAKER) (test zehf=181) 270 K/CU MM 150-450 MEAN PLATELET VOLUME (BEAKER) (test jacx=170) 9.7 fL 9.4-12.3 NUCLEATED RED BLOOD CELLS (BEAKER) (test 0 /100 WBC 0-0 bkyw=526)
[2019-07-13 18:44] LABS: Urine Blood NEGATIVE (NEG); Urine Glucose NEGATIVE (NEG); Urine Protein NEGATIVE (NEG); Urine Specific Gravity >1.030 (1.005-1.030)
--- NOTE | 2019-07-13 18:58 | RAD REPORT ---
EXAM DESCRIPTION: RAD - Chest Single View - 07/13/2019 6:37 pm CLINICAL HISTORY: Cough;Chest pain Chest pain. COMPARISON: Abdomen 1 View (KUB) dated 03/29/2019; Abdomen 1 View (KUB) dated 03/29/2019; Chest Single View dated 03/29/2019; CHEST PA AND LAT 2 VIEW dated 01/21/2014 FINDINGS: Portable technique limits examination quality. The lungs are grossly clear. The heart is normal in size. No displaced fractures. IMPRESSION: No acute intrathoracic process suspected.
[2019-07-13 19:00] LABS: Absolute Lymphocytes (CBC) 2.5 K/uL (0.7-4.9); Basophils % 0.6 % (0-1.3); Hematocrit 40.7 % (36.0-45.0); Lymphocytes % 22.4 % (15.3-44.8); MPV 7.8 fL (7.6-11.3); Protime INR 1.07; RBC Red Blood Cell Count 4.98 M/uL (3.86-4.86)
[2019-07-13 19:22] LABS: ALT/SGPT 57 U/L (12-78); AST/SGOT 30 U/L (15-37); Albumin 3.9 g/dL (3.4-5.0); Alkaline Phosphatase 69 U/L (45-117); BUN Blood Urea Nitrogen 13 mg/dL (7-18); Bicarbonate 27 mmol/L (21-32); Bilirubin Direct 0.1 mg/dL (0-0.2); Bilirubin Total 0.4 mg/dL (0.2-1.0); Glucose Level 89 mg/dL (74-106); NT PRO-BNP 28 pg/mL (<125); Potassium 3.6 mmol/L (3.5-5.1); Sodium Level 141 mmol/L (136-145); Troponin (Emerg Dept Use Only) < 0.02 ng/mL (0.0-0.045)
--- NOTE | 2019-07-13 19:22 | RAD REPORT ---
EXAM DESCRIPTION: US - Extrem Venous W Compress Riccardo - 07/13/2019 7:15 pm CLINICAL HISTORY: Pain;Swelling Bilateral leg edema and swelling. COMPARISON: No comparisons TECHNIQUE: Real-time sonographic interrogation of the left and right lower extremity deep venous sys tems was performed. FINDINGS: Normal compressibility, flow augmentation, phasic flow and spontaneous flow is identified in both the left and right lower extremity deep venous systems. IMPRESSION: No sonographic evidence of left or right lower extremity deep venous thrombosis.
--- NOTE | 2019-07-13 20:01 | RAD REPORT ---
EXAM DESCRIPTION: CT - Chest For Pe Angio - 07/13/2019 7:54 pm CLINICAL HISTORY: Chest pain. CHEST PAIN COMPARISON: No comparisons TECHNIQUE: CT angiogram of the pulmonary arteries was performed with MIP. All CT scans are performed using dose optimization technique as appropriate and may include automated exposure control or mA/KV adjustment according to patient size. FINDINGS: No evidence of pulmonary thromboembolism. No acute aortic finding demonstrated. The lungs are clear. No significant pericardial or pleural fluid. No concerning bony finding. IMPRESSION: No evidence of pulmonary thromboembolism. No acute lung findings.
--- NOTE | 2019-07-13 20:05 | ER ---
Nurse's Notes [facility] Name: Mara Farris Age: 24 yrs Sex: Female : 1995 Arrival Date: 07/13/2019 Time: 17:41 Bed 20 Private MD: Diagnosis: Pain in right lower leg;Other chest pain Presentation: 07/13 17:55 Presenting complaint: Patient states: "R leg hurting x couple months. [place] a knot on ca1 the R leg couple weeks ago and I feel like it is getting bigger. Sometimes my toes feel numb and tingly on R foot. Chest pain started couple days ago with shortness of breath". Pt reports cough and congestion x 1 week. Transition of care: patient was not received from another setting of care. Onset of symptoms was July 13, 2019. Risk Assessment: Do you want to hurt yourself or someone else? Patient reports no desire to harm self or others. Initial Sepsis Screen: Does the patient meet any 2 criteria? No. Patient's initial sepsis screen is negative. Does the patient have a suspected source of infection? No. Patient's initial sepsis screen is negative. Care prior to arrival: None. 17:55 Method Of Arrival: Ambulatory ca1 17:55 Acuity: LILIANA 3 ca1 Triage Assessment: 18:00 General: Appears in no apparent distress. comfortable, obese, Behavior is cooperative, bp appropriate for age, anxious. Pain: Complains of pain in right leg. EENT: No deficits noted. Neuro: No deficits noted. Cardiovascular: Rhythm is sinus rhythm. Respiratory: No deficits noted. GI: No signs and/or symptoms were reported involving the gastrointestinal system. : No signs and/or symptoms were reported regarding the genitourinary system. Derm: No deficits noted. Musculoskeletal: Reports pain in right leg. 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 - Social history:: Smoking status: Patient uses tobacco products, denies chronic smoking, but will smoke occasionally. - Ebola Screening: : Patient negative for fever greater than or equal to 101.5 degrees Fahrenheit, and additional compatible Ebola Virus Disease symptoms Patient denies exposure to infectious person Patient denies travel to an Ebola-affected area in the 21 days before illness onset No symptoms or risks identified at this time. - Family history:: not pertinent. Screenin:42 Abuse screen: Denies threats or abuse. Denies injuries from another. Nutritional bp screening: No deficits noted. Tuberculosis screening: No symptoms or risk factors identified. Fall Risk None identified. Assessment: 18:00 General: SEE TRIAGE NOTE. bp 18:43 Reassessment: U/S AT B/S. bp 19:25 Reassessment: Patient appears in no apparent distress at this time. Patient is alert, lp1 oriented x 3, equal unlabored respirations, skin warm/dry/pink. Patient aware of pending CT scan. Pain: Complains of pain in right murillo Pain does not radiate. Pain began 2 months ago. Vital Signs: 18:02 BP 104 / 65; Pulse 85; Resp 17 S; Temp 98.6(O); Pulse Ox 99% on R/A; Weight 108.86 kg ca1 (R); Height 5 ft. 6 in. (167.64 cm) (R); Pain 3/10; 19:25 BP 119 / 80; Pulse 87; Resp 18; Pulse Ox 100% on R/A; lp1 18:02 Body Mass Index 38.74 (108.86 kg, 167.64 cm) ca1 ED Course: 17:41 Patient arrived in ED. mr 18:01 Triage completed. ca1 18:02 Arm band placed on right wrist. EKG completed in triage. Results shown to MD. ca1 18:12 Bryan Mclain MD is Attending Physician. blayne 18:24 Raheel Lemon, BRANDO is Primary Nurse. bp 18:36 Chest Single View XRAY: shield In Process Unspecified. EDMS 18:42 Patient has correct armband on for positive identification. Placed in gown. Bed in low bp position. Call light in reach. Side rails up X2. Adult w/ patient. Pulse ox on. NIBP on. 18:46 Inserted saline lock: 22 gauge in right antecubital area, using aseptic technique. bp Blood collected. 19:12 Ultrasound completed. Patient tolerated well. sg3 19:17 US Extremity Venous W Compression Riccardo In Process Unspecified. EDMS 19:45 CT completed. Patient tolerated procedure well. Patient moved back from CT. bq 20:01 CT Chest For PE Angio In Process Unspecified. EDMS 20:20 No provider procedures requiring assistance completed. IV discontinued, No lp1 redness/swelling at site. Pressure dressing applied. Administered Medications: No medications were administered Outcome: 20:04 Discharge ordered by . blayne 20:21 Discharged to home ambulatory, with significant other. lp1 20:21 Condition: good 20:21 Discharge instructions given to patient, Instructed on discharge instructions, follow up and referral plans. medication usage, Demonstrated understanding of instructions, follow-up care, medications, Prescriptions given X 1. 20:21 Patient left the ED. lp1 Signatures: Dispatcher [employer] EDMS Bryan Mclain MD MD cha Rivera, Mary mr Connors, Christie Corrales RN RN lp1 Raheel Lemon, BRANDO RN Juliana Rich sg3 Kacy Campos RN RN ca1
--- NOTE | 2019-07-13 20:07 | EDPHYS ---
Physician Documentation [facility] Name: Mara Farris Age: 24 yrs Sex: Female : 1995 Arrival Date: 07/13/2019 Time: 17:41 Bed 20 Private MD: ED Physician Bryan Mclain HPI: 07/13 18:30 This 24 yrs old Female presents to ER via Ambulatory with complaints of blayne Possible , Leg Pain, Chest Pain, Breathing Difficulty. 18:30 The patient presents with decreased range of motion, swelling, tenderness. The blayne complaints affect the medial aspect of right thigh, medial aspect of right knee, medial aspect of right calf, right quadriceps, right knee and right murillo. Context: The problem was sustained at an unknown site, resulted from an unknown cause. Onset: The symptoms/episode began/occurred 14 day(s) ago. Modifying factors: The symptoms are alleviated by nothing. the symptoms are aggravated by movement. Associated signs and symptoms: Pertinent positives: calf tenderness, swelling. Severity of symptoms: At their worst the symptoms were mild, moderate, in the emergency department the symptoms are unchanged. The patient has not experienced similar symptoms in the past. 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 - Social history:: Smoking status: Patient uses tobacco products, denies chronic smoking, but will smoke occasionally. - Ebola Screening: : Patient negative for fever greater than or equal to 101.5 degrees Fahrenheit, and additional compatible Ebola Virus Disease symptoms Patient denies exposure to infectious person Patient denies travel to an Ebola-affected area in the 21 days before illness onset No symptoms or risks identified at this time. - Family history:: not pertinent. ROS: 18:30 Constitutional: Negative for fever, chills, and weight loss, Eyes: Negative for injury, blayne pain, redness, and discharge, ENT: Negative for injury, pain, and discharge, Neck: Negative for injury, pain, and swelling, Abdomen/GI: Negative for abdominal pain, nausea, vomiting, diarrhea, and constipation, Back: Negative for injury and pain, : Negative for injury, bleeding, discharge, and swelling, Skin: Negative for injury, rash, and discoloration, Neuro: Negative for headache, weakness, numbness, tingling, and seizure, Psych: Negative for depression, anxiety, suicide ideation, homicidal ideation, and hallucinations, Allergy/Immunology: Negative for hives, rash, and allergies, Endocrine: Negative for neck swelling, polydipsia, polyuria, polyphagia, and marked weight changes, Hematologic/Lymphatic: Negative for swollen nodes, abnormal bleeding, and unusual bruising. 18:30 Cardiovascular: Positive for chest pain. 18:30 Respiratory: Positive for shortness of breath. 18:30 MS/extremity: Positive for pain, swelling, tenderness, of the right leg. Exam: 18:30 Constitutional: This is a well developed, well nourished patient who is awake, alert, blayne and in no acute distress. Head/Face: Normocephalic, atraumatic. Eyes: Pupils equal round and reactive to light, extra-ocular motions intact. Lids and lashes normal. Conjunctiva and sclera are non-icteric and not injected. Cornea within normal limits. Periorbital areas with no swelling, redness, or edema. ENT: Nares patent. No nasal discharge, no septal abnormalities noted. Tympanic membranes are normal and external auditory canals are clear. Oropharynx with no redness, swelling, or masses, exudates, or evidence of obstruction, uvula midline. Mucous membranes moist. Neck: Trachea midline, no thyromegaly or masses palpated, and no cervical lymphadenopathy. Supple, full range of motion without nuchal rigidity, or vertebral point tenderness. No Meningismus. Chest/axilla: Normal chest wall appearance and motion. Nontender with no deformity. No lesions are appreciated. Cardiovascular: Regular rate and rhythm with a normal S1 and S2. No gallops, murmurs, or rubs. Normal PMI, no JVD. No pulse deficits. Respiratory: Lungs have equal breath sounds bilaterally, clear to auscultation and percussion. No rales, rhonchi or wheezes noted. No increased work of breathing, no retractions or nasal flaring. Abdomen/GI: Soft, non-tender, with normal bowel sounds. No distension or tympany. No guarding or rebound. No evidence of tenderness throughout. Back: No spinal tenderness. No costovertebral tenderness. Full range of motion. Skin: Warm, dry with normal turgor. Normal color with no rashes, no lesions, and no evidence of cellulitis. Neuro: Awake and alert, GCS 15, oriented to person, place, time, and situation. Cranial nerves II-XII grossly intact. Motor strength 5/5 in all extremities. Sensory grossly intact. Cerebellar exam normal. Normal gait. Psych: Awake, alert, with orientation to person, place and time. Behavior, mood, and affect are within normal limits. 18:30 Musculoskeletal/extremity: ROM: full active range of motion, full passive range of motion, Circulation is intact in all extremities. Sensation intact. Compartment Syndrome exam of affected extremity: is normal. DVT Exam: No signs of deep vein thrombosis. negative Homans' sign noted on exam, no appreciated bluish discoloration, no erythema, no increased warmth, pain, swelling, tenderness, that is moderate, of the right leg. Vital Signs: 18:02 BP 104 / 65; Pulse 85; Resp 17 S; Temp 98.6(O); Pulse Ox 99% on R/A; Weight 108.86 kg ca1 (R); Height 5 ft. 6 in. (167.64 cm) (R); Pain 3/10; 19:25 BP 119 / 80; Pulse 87; Resp 18; Pulse Ox 100% on R/A; lp1 18:02 Body Mass Index 38.74 (108.86 kg, 167.64 cm) ca1 MDM: 18:12 Patient medically screened. [facility] 18:33 Data reviewed: vital signs, nurses notes, lab test result(s), EKG, radiologic studies, [facility] CT scan, doppler, plain films. 07/13 18:29 Order name: Basic Metabolic Panel; Complete Time: 19:53 [facility] 07/13 18:29 Order name: CBC with Diff; Complete Time: 19:21 [facility] 07/13 18:29 Order name: LFT's; Complete Time: 19:53 [facility] 07/13 18:29 Order name: Magnesium; Complete Time: 19:53 [facility] 07/13 18:29 Order name: NT PRO-BNP; Complete Time: 19:53 [facility] 07/13 18:29 Order name: PT-INR; Complete Time: 19:21 blayne 07/13 18:12 Order name: EKG; Complete Time: 18:13 blayne 07/13 18:14 Order name: Chest Single View XRAY: shield; Complete Time: 19:21 blayne 07/13 18:29 Order name: Troponin (emerg Dept Use Only); Complete Time: 19:53 blayne 07/13 18:29 Order name: CT Chest For PE Angio; Complete Time: 20:04 07/13 18:30 Order name: US Extremity Venous W Compression Riccardo; Complete Time: 19:53 blayne 07/13 18:30 Order name: Urine Dipstick--Ancillary (enter results); Complete Time: 19:21 ms 07/13 18:30 Order name: Urine --Ancillary (enter results); Complete Time: 19:21 ms 07/13 18:12 Order name: Urine Dipstick-Ancillary (obtain specimen); Complete Time: 18:42 blayne 07/13 18:12 Order name: Urine Test (obtain specimen); Complete Time: 18:43 [facility] 07/13 18:12 Order name: EKG - Nurse/Tech; Complete Time: 18:43 blayne 07/13 18:29 Order name: Cardiac monitoring; Complete Time: 18:43 [facility] 07/13 18:29 Order name: IV Saline Lock; Complete Time: 18:43 [facility] 07/13 18:29 Order name: Labs collected and sent; Complete Time: 18:43 [facility] 07/13 18:29 Order name: O2 Per Protocol; Complete Time: 18:43 [facility] 07/13 18:29 Order name: O2 Sat Monitoring; Complete Time: 18:43 [facility] Administered Medications: No medications were administered Disposition: 07/13/19 20:04 Discharged to Home. Impression: Pain in right lower leg, Other chest pain. - Condition is Stable. - Discharge Instructions: Nonspecific Chest Pain, Musculoskeletal Pain. - Prescriptions for Motrin IB 200 mg Oral Tablet - take 2 tablet by ORAL route every 6 hours As needed as needed with food; 30 tablet. - Medication Reconciliation Form, Thank You Letter, Antibiotic Education, Prescription Opioid Use form. - Follow up: Private Physician; When: 2 - 3 days; Reason: Recheck today's complaints, Continuance of care, Re-evaluation by your physician. - Problem is new. - Symptoms have improved. Signatures: Dispatcher [employer] EDMS Bryan Mclain MD MD cha Pena, Laura, RN RN lp1 Kacy Campos RN RN ca1 Corrections: (The following items were deleted from the chart) 18:35 18:14 Extremity Venous Uni [employer]+[email or web address] ordered. [facility] 20:21 20:04 07/13/2019 20:04 Discharged to Home. Impression: Pain in right lower leg; Other lp1 chest pain. Condition is Stable. Discharge Instructions: Nonspecific Chest Pain, Musculoskeletal Pain. Prescriptions for Motrin IB 200 mg Oral Tablet - take 2 tablet by ORAL route every 6 hours As needed as needed with food; 30 tablet. and Forms are Medication Reconciliation Form, Thank You Letter, Antibiotic Education, Prescription Opioid Use. Follow up: Private Physician; When: 2 - 3 days; Reason: Recheck today's complaints, Continuance of care, Re-evaluation by your physician. Problem is new. Symptoms have improved. blayne
[2019-07-13 20:26] VITALS: TEMP 98.6
[2019-07-13 20:27] VITALS: BP 119/80; O2SAT 100
--- NOTE | 2019-07-14 05:31 | EKG ---
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
== END 2019-07-13 20:21 | disposition home or self-care (01) ==
LOC: ER 17:38
DX: R07.89 Other chest pain (principal); F34.1 Dysthymic disorder; Z72.0 Tobacco use
CPT/HCPCS: 36415; 71045; 71275; 80048; 80076; 81003; 81025; 83735; 83880; 84484; 85025; 85610; 93005; 93970; 99285; Q9967

== ENCOUNTER 2019-09-24 10:56 | Emergency (ER) | payer SELFPAY ==
--- OUTSIDE RECORDS SUMMARY | 2019-09-24 11:02 | XMS REPORT ---
:1995 [facility] Address [address] [place] [address] [address]. [address]un [address] [place] [address] Care Team Providers Name Role Phone ROD [...] PATIENT VIEW AP 09:13:00 exam:->Confirm Foreign ID: [id number] KUB Body passing History provided: Foreign body evaluation Comparison exam: 04/01/2019 Yesterday's KUB did not reveal a radiopaque foreign body. Today's KUB also does not reveal a radiopaque foreign body. Bowel gas pattern is normal. Signed: Terrell Sahu Verified Date/Time: 04/02/2019 09:13:00 Reading Location: [facility] Radiology Reading Room , ABDOMEN/KUB, 1 2019-04-02 Reason for FINAL REPORT PATIENT VIEW AP 03:13:00 exam:->Foreign Body ID: [id number] Abdomen ingestion, follow up one view Comparison: [...] PATIENT VIEW AP 08:07:00 exam:->Foreign body ID: [id number] RAD, ingestion, follow up ABDOMEN/KUB, 1 VIEW [...] Mcconnell Verified Date/Time: 04/01/2019 08:07:22 Reading Location: [facility] Radiology Reading Room , ABDOMEN/KUB, 1 2019-03-31 Reason for FINAL REPORT PATIENT VIEW AP 23:49:00 exam:->Foreign body ID: [id number] ingestion, follow up INDICATION:Swallowed tongue stud. COMPARISON: March 31 at 5:50 PM. TECHNIQUE: Abdomen radiograph one view. FINDINGS / IMPRESSION:Metallic stud is unchanged in position, in the medial left abdomen.Bowel gas pattern normal. No obvious free intraperitoneal air. Signed: Malachi Arnett Verified Date/Time: 03/31/2019 23:49:22 Reading Location: [address] Consult Reading Room , ABDOMEN/KUB, 1 2019-03-31 Reason for FINAL REPORT PATIENT VIEW AP 22:24:00 exam:->swallowed ID: [id number] tongue ring, needs INDICATION:Swallowed serial KUBs till ring tongue stud. passes in stool COMPARISON: March 31 at 9:08 AM TECHNIQUE: Abdomen radiograph one view. FINDINGS / IMPRESSION:Metallic stud is unchanged in position, in the medial left abdomen.Bowel gas pattern normal. No obvious free intraperitoneal air. Signed: Malachi Arnett Verified Date/Time: 03/31/2019 22:24:04 Reading Location: [address] Consult Reading Room EN, URINE 2019-03-31 18:05:00 Test Item Value Reference Range Comments TEST URINE (BEAKER) (test lepa=304) Negative RAD, ABDOMEN/KUB, 1 VIEW [id number] 10:02:00Reason for exam:->Foreign Body Ingestion, follow upFINAL [...] Mcconnell Verified Date/Time: 03/31/2019 10:02:48 Reading Location: [facility] Radiology Reading Room Electronicallysigned by: JULIANA MCCONNELL MD on 2018 10:02 AMRAD, ABDOMEN/KUB, 1 VIEW [id number] 21:49:00Reason for exam:-> Foreign Body Ingestion, follow [...] Date/Time: 03/30/2019 21:49:32 RAD, ABDOMEN/KUB, 1 VIEW [id number] 12:58:00Reason for exam:->foreign body ingestion, follow upFINAL [...] [place] Verified Date/Time: 03/30/2019 12:58:06 Reading Location: [address] Ortho Consult Reading Room RAD, ABDOMEN/KUB, 1 VIEW [id number] 09:33:00Reason for exam:->FBFINAL REPORT Technique: Frontal image [...] Verified Date/ Time: 03/30/2019 09:33:00 Reading Location: [place] [id number] Transitional ReadingRoom 09: 33 AMBASIC METABOLIC [id number] 07:47:00 Test Item Value Reference Range Comments SODIUM (BEAKER) (test 138 meq/L 136-145 ukjp=173) POTASSIUM (BEAKER) (test 3.8 meq/L 3.5-5.1 ltud=349) CHLORIDE (BEAKER) (test 107 meq/L 98-107 ewkz=403) CO2 (BEAKER) (test 24 meq/L 22-29 fdow=753) BLOOD UREA NITROGEN 14 mg/dL 7-21 (BEAKER) (test qmna=122) CREATININE (BEAKER) (test 0.70 mg/dL 0.57-1.25 zyrq=158) GLUCOSE RANDOM (BEAKER) 78 mg/dL 70-105 (test cjzi=439) CALCIUM (BEAKER) (test 8.9 mg/dL 8.4-10.2 cphr=259) EGFR (BEAKER) (test 101 mL/min/1.73 sq m ESTIMATED GFR IS NOT zqks=3225) ACCURATE CREATININE CLEARANCE IN PREDICTING GLOMERULAR FILTRATION RATE. ESTIMATED GFR IS NOT APPLICABLE FOR DIALYSIS PATIENTS. CBC (HEMOGRAM ONLY)2019-03-30 06:24:00 Test Item Value Reference Range Comments WHITE BLOOD CELL COUNT (BEAKER) (test dedy=235) 8.5 K/ L 3.5-10.5 RED BLOOD CELL COUNT (BEAKER) (test cyws=084) 4.82 M/ L 3.93-5.22 HEMOGLOBIN (BEAKER) (test ofmy=797) 13.3 GM/DL 11.2-15.7 HEMATOCRIT (BEAKER) (test gpcq=615) 41.2 % 34.1-44.9 MEAN CORPUSCULAR VOLUME (BEAKER) (test dtcc=555) 85.5 fL 79.4-94.8 MEAN CORPUSCULAR HEMOGLOBIN (BEAKER) (test 27.6 pg 25.6-32.2 cgll=948) MEAN CORPUSCULAR HEMOGLOBIN CONC (BEAKER) (test 32.3 GM/DL 32.2-35.5 nzvm=352) RED CELL DISTRIBUTION WIDTH (BEAKER) (test 13.0 % 11.7-14.4 sxxx=429) PLATELET COUNT (BEAKER) (test juuz=446) 270 K/CU MM 150-450 MEAN PLATELET VOLUME (BEAKER) (test nxwu=777) 9.7 fL 9.4-12.3 NUCLEATED RED BLOOD CELLS (BEAKER) (test 0 /100 WBC 0-0 opwo=390)
[2019-09-24 11:26] LABS: Absolute Lymphocytes (CBC) 1.8 K/uL (0.7-4.9); Basophils % 0.8 % (0-1.3); Hematocrit 43.4 % (36.0-45.0); Lymphocytes % 23.7 % (15.3-44.8); MPV 7.7 fL (7.6-11.3); RBC Red Blood Cell Count 5.27 M/uL (3.86-4.86)
[2019-09-24 11:37] LABS: ALT/SGPT 45 U/L (12-78); AST/SGOT 20 U/L (15-37); Alkaline Phosphatase 57 U/L (45-117); BUN Blood Urea Nitrogen 11 mg/dL (7-18); Bicarbonate 28 mmol/L (21-32); Bilirubin Direct < 0.1 mg/dL (0-0.2); Bilirubin Total 0.3 mg/dL (0.2-1.0); Glucose Level 79 mg/dL (74-106); Lipase 135 U/L (73-393); Potassium 3.8 mmol/L (3.5-5.1); Protein, Total 8.2 g/dL (6.4-8.2); Sodium Level 140 mmol/L (136-145)
--- NOTE | 2019-09-24 11:38 | RAD REPORT ---
EXAM DESCRIPTION: RAD - Chest Pa And Lat (2 Views) - 09/24/2019 11:33 am CLINICAL HISTORY: CHEST PAIN Chest pain. COMPARISON: Chest Single View dated 07/13/2019; Abdomen 1 View (KUB) dated 03/29/2019; Abdomen 1 View ( KUB) dated 03/29/2019; Chest Single View dated 03/29/2019; Chest For Pe Angio dated 07/13/2019 FINDINGS: The lungs are clear. The heart is normal in size. No displaced fractures. IMPRESSION: No acute or concerning finding suspected.
--- NOTE | 2019-09-24 11:57 | ER ---
Nurse's Notes [facility] Name: Mara Farris Age: 24 yrs Sex: Female : 1995 Arrival Date: 09/24/2019 Time: 10:58 Bed 7 Private MD: Diagnosis: Chest pain on breathing Presentation: 09/23 11:11 Chief complaint: Patient states: epigastric pain that radiates towards back with ss nausea. Began this morning. Coronavirus screen: The patient has NOT traveled to a country currently being monitored by the [facility] within the last 14 days. Proceed with normal triage procedures. Ebola Screen: Patient denies exposure to infectious person. Patient denies travel to an Ebola-affected area in the 21 days before illness onset. Initial Sepsis Screen: Does the patient meet any 2 criteria? No. Patient's initial sepsis screen is negative. Does the patient have a suspected source of infection? No. Patient's initial sepsis screen is negative. Risk Assessment: Do you want to hurt yourself or someone else? Patient reports no desire to harm self or others. 11:11 Method Of Arrival: Ambulatory ss 11:11 Acuity: LILIANA 3 ss Triage Assessment: 11:15 General: Appears in no apparent distress. uncomfortable, well developed, Behavior is sv calm, cooperative, appropriate for age. Pain: Complains of pain in back and chest Pain currently is 4 out of 10 on a pain scale. Quality of pain is described as sharp, Pain began 2-3 days ago. Is intermittent. Neuro: Level of Consciousness is awake, alert, obeys commands, Oriented to person, place, time, situation, Moves all extremities. Full function Gait is steady. Respiratory: Reports pain with cough pain with respiration Airway is patent Respiratory effort is even, unlabored, Respiratory pattern is regular, symmetrical. Derm: Skin is intact, Skin is pink, warm \T\ dry. Musculoskeletal: Range of motion: intact in all extremities. Historical: - Allergies: 11:14 No Known Allergies; ss - Home Meds: 11:14 Lexapro 20 mg Oral tab 1 tab once daily [Active]; ss - PMHx: 11:14 Anxiety; Depression; ss - PSHx: 11:14 ; ss - Immunization history:: Adult Immunizations up to date. - Social history:: Smoking status: Patient/guardian denies using tobacco, Stopped _ months ago 2.5. Screenin:10 Abuse screen: Denies threats or abuse. Denies injuries from another. Nutritional sv screening: No deficits noted. Tuberculosis screening: No symptoms or risk factors identified. Fall Risk None identified. Assessment: 12:06 Reassessment: Patient appears in no apparent distress at this time. No changes from sv previously documented assessment. Patient and/or family updated on plan of care and expected duration. Pain level reassessed. Patient is alert, oriented x 3, equal unlabored respirations, skin warm/dry/pink. Vital Signs: 11:11 BP 131 / 82; Pulse 77; Resp 14; Temp 98.3(O); Pulse Ox 97% on R/A; Weight 108.86 kg; ss Height 5 ft. 6 in. (167.64 cm); Pain 4/10; 11:11 Body Mass Index 38.74 (108.86 kg, 167.64 cm) ED Course: 10:58 Patient arrived in ED. mr 11:05 Ashley Ivan F[facility]-C [facility]. kb 11:05 Jacky White MD is Attending Physician. kb 11:10 Patient has correct armband on for positive identification. Bed in low position. Call sv light in reach. Pulse ox on. NIBP on. Door closed. Head of bed elevated. 11:13 Inserted saline lock: 20 gauge in right antecubital area, using aseptic technique. sv Blood collected. Flushed right antecubital with 5 ml normal saline. Patient maintains SpO2 saturation greater than 95% on room air. 11:14 Triage completed. ss 11:14 Arm band placed on right wrist. Patient placed in an exam room, on a stretcher. ss 11:17 Huong Gann, RN is Primary Nurse. sv 11:18 Awaiting lab results, Awaiting for x-ray. sv 11:33 Chest Pa And Lat (2 Views) XRAY In Process Unspecified. EDMS 12:06 No provider procedures requiring assistance completed. IV discontinued, intact, sv bleeding controlled, No redness/swelling at site. Pressure dressing applied. Administered Medications: No medications were administered Outcome: 11:56 Discharge ordered by . kb 12:06 Discharged to home ambulatory. sv 12:06 Condition: stable 12:06 Discharge instructions given to patient, Instructed on discharge instructions, follow up and referral plans. medication usage, Demonstrated understanding of instructions, follow-up care, medications, Prescriptions given X 1. 12:07 Patient left the ED. sv Signatures: Dispatcher [employer] EDAshley Aquino, ANNA BARGER-Huong Thurston, RN RN Eri Gresham mr Aura Lanier, RN RN ss
--- NOTE | 2019-09-24 11:58 | EDPHYS ---
Physician Documentation [facility] Name: Mara Farris Age: 24 yrs Sex: Female : 1995 Arrival Date: 09/24/2019 Time: 10:58 Bed 7 Private MD: ED Physician Jacky White HPI: 09/23 13:59 This 24 yrs old Female presents to ER via Ambulatory with complaints of Chest kb Pain, Rib pain. 14:03 The patient or guardian reports chest pain that is located primarily in the left breast kb and xyphoid area. The pain does not radiate. Associated signs and symptoms: The patient has no apparent associated signs or symptoms. The chest pain is described as aching. Duration: The patient or guardian reports multiple episodes. Modifying factors: The symptoms are alleviated by nothing. the symptoms are aggravated by cough. Severity of pain: At its worst the pain was moderate in the emergency department the pain is unchanged. The patient has not experienced similar symptoms in the past. The patient has been recently seen by a physician:. Pt reports chest pain below left breast that is worse with deep breath. States it started this morning. Has had a cough for a few days that was productive, then dry. Cough seemed to stop yesterday. Historical: - Allergies: 11:14 No Known Allergies; ss - Home Meds: 11:14 Lexapro 20 mg Oral tab 1 tab once daily [Active]; ss - PMHx: 11:14 Anxiety; Depression; ss - PSHx: 11:14 ; ss - Immunization history:: Adult Immunizations up to date. - Social history:: Smoking status: Patient/guardian denies using tobacco, Stopped _ months ago 2.5. ROS: 13:57 Constitutional: Negative for fever, chills, and weight loss, Respiratory: Negative for kb shortness of breath, cough, wheezing, and pleuritic chest pain, Abdomen/GI: Negative for abdominal pain, nausea, vomiting, diarrhea, and constipation, Back: Negative for injury and pain, MS/Extremity: Negative for injury and deformity, Skin: Negative for injury, rash, and discoloration, Neuro: Negative for headache, weakness, numbness, tingling, and seizure. 13:57 Cardiovascular: Positive for chest pain, of the xyphoid area and left breast. Exam: 13:55 Constitutional: This is a well developed, well nourished patient who is awake, alert, kb and in no acute distress. Head/Face: Normocephalic, atraumatic. ENT: Nares patent. No nasal discharge, no septal abnormalities noted. Tympanic membranes are normal and external auditory canals are clear. Oropharynx with no redness, swelling, or masses, exudates, or evidence of obstruction, uvula midline. Mucous membranes moist. Neck: Trachea midline, no thyromegaly or masses palpated, and no cervical lymphadenopathy. Supple, full range of motion without nuchal rigidity, or vertebral point tenderness. No Meningismus. Cardiovascular: Regular rate and rhythm with a normal S1 and S2. No gallops, murmurs, or rubs. Normal PMI, no JVD. No pulse deficits. Respiratory: Lungs have equal breath sounds bilaterally, clear to auscultation and percussion. No rales, rhonchi or wheezes noted. No increased work of breathing, no retractions or nasal flaring. Back: No spinal tenderness. No costovertebral tenderness. Full range of motion. Skin: Warm, dry with normal turgor. Normal color with no rashes, no lesions, and no evidence of cellulitis. MS/ Extremity: Pulses equal, no cyanosis. Neurovascular intact. Full, normal range of motion. Neuro: Awake and alert, GCS 15, oriented to person, place, time, and situation. Cranial nerves II-XII grossly intact. Motor strength 5/5 in all extremities. Sensory grossly intact. Cerebellar exam normal. Normal gait. 13:55 Chest/axilla: Inspection: normal, Palpation: tenderness, that is moderate, of the xyphoid area, that totally reproduces the patient's complaints. Vital Signs: 11:11 BP 131 / 82; Pulse 77; Resp 14; Temp 98.3(O); Pulse Ox 97% on R/A; Weight 108.86 kg; ss Height 5 ft. 6 in. (167.64 cm); Pain 4/10; 11:11 Body Mass Index 38.74 (108.86 kg, 167.64 cm) ss MDM: 11:05 Patient medically screened. kb 12:55 Data reviewed: vital signs, nurses notes. Data interpreted: Pulse oximetry: on room air kb is 97 %. Interpretation: normal. Counseling: I had a detailed discussion with the patient and/or guardian regarding: the historical points, exam findings, and any diagnostic results supporting the discharge/admit diagnosis, lab results, radiology results, the need for outpatient follow up, a family practitioner, to return to the emergency department if symptoms worsen or persist or if there are any questions or concerns that arise at home. 09/23 11:10 Order name: Basic Metabolic Panel; Complete Time: 11:40 kb 09/23 11:10 Order name: CBC with Diff; Complete Time: 11:29 kb 09/23 11:10 Order name: Hepatic Function; Complete Time: 11:40 kb 09/23 11:10 Order name: Lipase; Complete Time: 11:40 kb 09/23 11:10 Order name: EKG; Complete Time: 11:11 kb 09/23 11:10 Order name: Chest Pa And Lat (2 Views) XRAY; Complete Time: 11:40 kb 09/23 11:10 Order name: IV Saline Lock; Complete Time: 11:18 kb 09/23 11:10 Order name: Labs collected and sent; Complete Time: 11:18 kb 09/23 11:10 Order name: EKG - Nurse/Tech; Complete Time: 11:23 kb Administered Medications: No medications were administered Disposition: 16:25 Co-signature as Attending Physician, Jacky White MD I agree with the assessment and kdr plan of care. 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 Disposition: 09/24/19 11:56 Discharged to Home. Impression: Chest pain on breathing. - Condition is Stable. - Discharge Instructions: Costochondritis, [id number], Pleurisy, Mzuk-[id number]-Mymz. - Prescriptions for Diclofenac Sodium 75 mg Oral Tablet, Delayed Release (E.C.) - take 1 tablet by ORAL route 2 times per day As needed; 30 tablet. - Medication Reconciliation Form, Thank You Letter, Antibiotic Education, Prescription Opioid Use form. - Follow up: Emergency Department; When: As needed; Reason: Worsening of condition. Follow up: Private Physician; When: 2 - 3 days; Reason: Recheck today's complaints, Continuance of care, Re-evaluation by your physician. Signatures: Dispatcher [employer] Ashley Sherman, CHARBEL-C CHARBEL-Huong Thurston RN RN sv Jacky White MD MD [facility] Aura Lanier, BRANDO RN ss Corrections: (The following items were deleted from the chart) 12:07 11:56 09/24/2019 11:56 Discharged to Home. Impression: Chest pain on breathing. sv Condition is Stable. Forms are Medication Reconciliation Form, Thank You Letter, Antibiotic Education, Prescription Opioid Use. Follow up: Emergency Department; When: As needed; Reason: Worsening of condition. Follow up: Private Physician; When: 2 - 3 days; Reason: Recheck today's complaints, Continuance of care, Re-evaluation by your physician. kb
[2019-09-24 12:28] VITALS: BP 119/73; TEMP 98; O2SAT 100
--- NOTE | 2019-09-24 13:23 | EKG ---
Test Date: 2019-09-24 Test Time: 11:25:51 Can Repairer: NICOLE MEASUREMENT RESULTS: Intervals: Rate: 68 ND: 156 QRSD: 86 QT: 386 QTc: 410 [place]: P: 58 ND: 156 QRS: 48 T: 31 INTERPRETIVE STATEMENTS: Normal sinus rhythm with sinus arrhythmia normal ECG Compared to ECG 07/13/2019 18:10:43 no significant change from previous ECG Electronically Signed On 09-24-19 13:22:44 CDT by Bob Quach
== END 2019-09-24 12:07 | disposition home or self-care (01) ==
LOC: ER 10:56
DX: R07.1 Chest pain on breathing (principal); F34.1 Dysthymic disorder; Z87.891 Personal history of nicotine dependence
CPT/HCPCS: 36415; 71046; 80048; 80076; 83690; 85025; 93005; 99284

== ENCOUNTER 2020-01-15 00:16 | Emergency (ER) | payer SELFPAY ==
--- OUTSIDE RECORDS SUMMARY | 2020-01-15 00:19 | XMS REPORT | Continuity of Care Document ---
:1995 Author Organization [facility] t Address [address] [place] [address] [address]. 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 - stomach, stomach, 00:00: Medica l initial initial 00 Center encounter encounter Allergies, Adverse Reactions, Alerts This patient has no known allergies or adverse reactions. Social History Social Habit Start Date Stop Date Quantity Comments Source Sex Assigned At [facility] Cigarettes smoked 2019-03-29 2019-03-29 [facility] - current (pack per 00:00:00 00:00:00 Medical Center day) - Reported Alcohol Comment 2019-03-29 2019-03-29 occational maybe [facility] - 00:00:00 00:00:00 once a month more [facility] Center than 5 drinks Smoking Status Start Date Stop Date Source Current some day smoker 2019-03-29 00:00:00 [facility] Medications Ordered Filled Start Stop Current Ordering Indication Dosage Frequency Signature Comments Components Source Medication Medication Date Date Medication? Clinician (SIG) Name Name pantoprazol 2019- No 40mg QD Take [address] [facility] e 9-26 10-26 tablet (40 [facility] - (PROTONIX) 00:00: 23:59 mg total) M edical 40 MG 00 :00 by mouth Center tablet daily for 30 days. sucralfate 2019- No 1g Take [address] [facility] [address] (CARAFATE) 9-25 10-25 mLs (1 g Luke s - 100 mg/mL 00:00: 23:59 total) by Pr dical suspension 00 :00 mouth 4 Center (four) times daily as needed (for abdominal pain) for up to 30 days. ARIPiprazol Yes 2mg QD Take [address] e (ABILIFY) 8-14 by mouth Luke [facility] - 2 MG tablet 00:00: daily. Medi ba 00 Center escitalopra Yes 20mg QD Take [address] [facility] m oxalate 8-14 by mouth [facility] - (LEXAPRO) 00:00: daily. Medica l 20 MG 00 Center tablet Vital Signs Vital Name Observation Time Observation Value Comments Source Systolic blood 2019-04-02 07:55:00 116 mm[Hg] [facility] Diastolic blood 2019-04-02 07:55:00 61 mm[Hg] [facility] S [facility] Heart rate 2019-04-02 07:55:00 66 /min [facility] Body temperature 2019-04-02 07:55:00 37.11 Cecelia [facility] Respiratory rate 2019-04-02 07:55:00 18 /min [facility] Oxygen saturation in 2019-04-02 07:55:00 97 /min [facility] Arterial blood by Medical Ce nter Pulse oximetry Body weight Measured 2019-04-02 06:37:00 60.374 kg [facility] Procedures Procedure Date / Time Performed Performing Clinician Sourc e XR ABDOMEN / KUB 1 2019-04-02 08:57:00 Valentin Mace [facility] XR ABDOMEN / KUB 1 2019-04-01 20:15:[address] Nak[address] [facility] XR ABDOMEN / KUB 1 2019-04-01 06:50:00 [facility] XR ABDOMEN / KUB 1 2019-03-31 20:10:00 [facility] XR ABDOMEN / KUB 1 2019-03-31 17:50:00 Nina So [facility] SCREEN, 2019-03-31 17:17:00 [facility] es - URINE [facility] XR ABDOMEN / KUB 1 2019-03-31 08:46:00 [facility] XR ABDOMEN / KUB 1 2019-03-30 21:15:00 [facility] XR ABDOMEN / KUB 1 2019-03-30 12:56:00 [facility] XR ABDOMEN / KUB 1 2019-03-30 06:50:00 [facility] CBC (HEMOGRAM ONLY) 2019-03-30 05:33:00 [facility] BASIC METABOLIC PANEL 2019-03-30 05:33:[address] Results Test Description Test Time Test Comments Results Result [facility] e Comments RAD, ABDOMEN/KUB, 2019-04-02 Reason for FINAL REPORT PATIENT 1 VIEW AP 09:13:00 exam:->Confir ID: [id number] KUB m Foreign History provided: Body passing Foreign body evaluation Comparison exam: 04/01/2019 Yesterday's KUB did not reveal a radiopaque foreign body. Today's KUB also does not reveal a radiopaque foreign body. Bowel gas pattern is normal. Signed: Mena Sahu MDReport Verified Date/Time: 04/02/2019 09:13:00 Reading Location: [facility] Radiology Reading Room abdomen / KUB 2019-04-02 Interface, [place] [id number] view 09:13:00 Ris In - 04/02/2019 - Med ical 9:26 AM CDTFINAL Center REPORT KUB History provided: Foreign body evaluation Comparison exam: 04/01/2019 Yesterday's KUB did not reveal a radiopaque foreign body. Today's KUB also does not reveal a radiopaque foreign body. Bowel gas pattern is normal. Signed: Mena Sahu Verified Date/Time: 04/02/2019 09:13:00 Reading Location: [facility] Radiology Reading Room , ABDOMEN/KUB, 2019-04-02 Reason for FINAL REPORT PATIENT 1 VIEW AP 03:13:00 exam:->Foreig ID: [id number] n Body Abdomen one view ingestion, Comparison: follow up Abdominal radiograph image 04/01/2019, 6:50 AM. Reason for exam: Foreign Body ingestion, follow up image Findings: Supine view of the abdomen was obtained. There is no bowel obstruction. There is no radiopaque foreign body. The visualized lungs are clear. The osseous structures are unremarkable. Impression:No radiopaque foreign body. No bowel obstruction. Signed: Dexter Oropeza Verified Date/Time: 04/02/2019 03:13:21 , ABDOMEN/KUB, 2019-04-01 Reason for FINAL REPORT PATIENT 1 VIEW AP 08:07:00 exam:->Foreig ID: [id number] RAD, n body ABDOMEN/KUB, 1 VIEW ingestion, AP CLINICAL follow up INDICATION: Foreign body ingestion, follow up COMPARISON: None TECHNIQUE: Single, frontal radiograph of the abdomen. FINDINGS: The bowel gas pattern is nonspecific, but nonobstructive. No abnormal mass or ascites is detected. No significant calcifications are present. The regional skeleton is intact. IMPRESSION: Nonspecific, nonobstructive bowel gas pattern. Radiopaque density projects over the left colon. Signed: Izabel Do Verified Date/Time: 04/01/2019 08:07:22 Reading Location: [facility] Radiology Reading Room , ABDOMEN/KUB, 2019-03-31 Reason for FINAL REPORT PATIENT 1 VIEW AP 23:49:00 exam:->Foreig ID: [id number] n body INDICATION:Swallowed ingestion, tongue stud. follow up COMPARISON: March 31 at 5:50 PM. TECHNIQUE: Abdomen radiograph one view. FINDINGS / IMPRESSION:Metallic stud is unchanged in position, in the medial left abdomen.Bowel gas pattern normal. No obvious free intraperitoneal air. Signed: Justice Gill MDReport Verified Date/Time: 03/31/2019 23:49:22 Reading Location: [address] Consult Reading Room , ABDOMEN/KUB, 2019-03-31 Reason for FINAL REPORT PATIENT 1 VIEW AP 22:24:00 exam:->swallo ID: [id number] wed tongue INDICATION:Swallowed ring, needs tongue stud. serial KUBs COMPARISON: till ring March 31 at 9:08 passes in AM TECHNIQUE: stool Abdomen radiograph one view. FINDINGS / IMPRESSION:Metallic stud is unchanged in position, in the medial left abdomen.Bowel gas pattern normal. No obvious free intraperitoneal air. Signed: Justice Gill Verified Date/Time: 03/31/2019 22:24:04 Reading Location: [address] Consult Reading Room Screen, urine 2019-03-31 18:05:00 Test Item Value Reference Range Interpretation Comme nts Preg Test, Ur (test code = 2112-1) [facility] [id number] 18:05:00 Test Item Value Reference Range Interpretation Comments TEST URINE (BEAKER) (test Negative code = 583) RAD, ABDOMEN/KUB, 1 VIEW [id number] 10:02:00Reason for exam:->Foreign Body Ingestion, follow upFINAL [...] not significantly changed in the interim Signed: Izabel Do Verified Date/Time: 03/31/2019 10:02:48 Reading Location: [facility] Reading Room Electronicallysigned by: IZABEL DO MD on 03/31/2019 10:02 AMRAD, ABDOMEN/KUB, 1 VIEW [id number] 21:49:00Reason for exam:->Foreign Body Ingestion, follow upFINAL REPORT Abdomen one view Comparison: Abdominal radiograph performed earlier on the same day. Reason for exam: Foreign Body Ingestion, follow up Findings/impression: There is a linear metallic density in the right mid abdomen consistent with ingested foreign body possibly in the ascending colon, similar to prior exam. There is no dilated bowel loops. The osseous structuresare unremarkable. Signed: Dexter Oropeza Verified Date/Time: 03/30/2019 21:49:32 Electro nically signed by: DEXTER OROPEZA MD on 03/30/2019 09:49 PMRAD, ABDOMEN/KUB, 1 VIEW [id number] 12:58:00Reason for exam:->foreign body ingestion, follow upFINAL [...] as on the prior radiograph. Signed: Arden Donato Verified Date/Time: 03/30/2019 12:58:06 Reading Location: [facility] B1 [id number] Ortho Consult Reading Room RAD, ABDOMEN/KUB, 1 VIEW [id number] 09:33:00Reason for exam:->FB FINAL REPORT Technique: Frontal image of the abdomen FINDINGS: A 2 cm radiopaque structure projects over the right abdomen, uncertain if this is external to the patient, intraperitoneal or intraluminal. Correlation with history recommended. Bowel gas pattern is nonspecific. Evalu ation for free intraperitoneal air is limited due to positioning and technique. Signed: Dario Sánchez MDReport Verified Date/Time: 03/30/2019 09:33:00 Reading Location: [address] Transitional ReadingRoom [facility] Metabolic [id number] 07:47:00 Test Item Value Reference Range Interpretation Comments Sodium (test code = 138 meq/L 481-456 3362-2) Potassium (test code 3.8 meq/L 3.5-5.1 = 2823-3) Chloride (test code = 107 meq/L 98-107 2075-0) CO2 (test code = 24 meq/L 22-29 2028-9) BUN (test code = 14 mg/dL 7-21 3094-0) Creatinine (test code 0.70 mg/dL 0.57-1.25 = 2160-0) Glucose (test code = 78 mg/dL 70-105 2345-7) Calcium (test code = 8.9 mg/dL 8.4-10.2 14031-8) EGFR (test code = 101 mL/min/1.73 sq [place] [address]-4) ACCURATE CREATININE ALANA CLIFTON IN PREDICTING GLOMERULAR FILT RATION RATE. ESTIMATED GFR IS NOT APPLICAB LE FOR DIALYSIS PATIEN TSStevo ROUSE [facility] METABOLIC [id number] 07:47:00 Test Item Value Reference Range Interpretation Comments SODIUM (BEAKER) 138 meq/L 136-145 (test code = 381) POTASSIUM (BEAKER) 3.8 meq/L 3.5-5.1 (test code = 379) CHLORIDE (BEAKER) 107 meq/L 98-107 (test code = 382) CO2 (BEAKER) (test 24 meq/L 22-29 code = 355) BLOOD UREA NITROGEN 14 mg/dL 7-21 (BEAKER) (test code = 354) CREATININE (BEAKER) 0.70 mg/dL 0.57-1.25 (test code = 358) GLUCOSE RANDOM 78 mg/dL 70-105 (BEAKER) (test code = 652) CALCIUM (BEAKER) 8.9 mg/dL 8.4-10.2 (test code = 697) EGFR (BEAKER) (test 101 mL/min/1.73 ESTIM ATED GFR IS code = 1092) sq m NOT ACCURATE CREATININE CLEARANCE IN PREDICTING GLOMERULAR FILTRATION RATE . ESTIMATED GFR I S NOT APPLICABLE FOR DIALYSIS PATIEN TS. CBC (Hemogram only)2019-03-30 06:24:00 Test Item Value Reference Range Interpretation Comments WBC (test code = 6690-2) 8.5 3.5- 10.5 K/L RBC (test code = 789-8) 4.82 3.93- 5.22 M/L MCHC (test code = 786-4) 32.3 32.2- 35.5 GM/DL Hematocrit (test code = 4544-3) 41.2 % 34.1-44.9 MCV (test code = 787-2) 85.5 fL 79.4-94.8 MCH (test code = 785-6) 27.6 pg 25.6-32.2 RDW (test code = 788-0) 13.0 % 11.7-14.4 Platelets (test code = 777-3) 270 150- 450 K/CU MM MPV (test code = 82267-4) 9.7 fL 9.4-12.3 nRBC (test code = 413) 0 0- 0 /100 WBC Lab Interpretation (test code = Normal 78295-7) [facility]30 06:24:00 Test Item Value Reference Range Interpretation Comments WHITE BLOOD CELL COUNT (BEAKER) 8.5 K/ L 3.5-10.5 (test code = 775) RED BLOOD CELL COUNT (BEAKER) 4.82 M/ L 3.93-5.22 (test code = 761) HEMOGLOBIN (BEAKER) (test code = 13.3 GM/DL 11.2-15.7 410) HEMATOCRIT (BEAKER) (test code = 41.2 % 34.1-44.9 411) MEAN CORPUSCULAR VOLUME (BEAKER) 85.5 fL 79.4-94.8 (test code = 753) MEAN CORPUSCULAR HEMOGLOBIN 27.6 pg 25.6-32.2 (BEAKER) (test code = 751) MEAN CORPUSCULAR HEMOGLOBIN CONC 32.3 GM/DL 32.2-35.5 (BEAKER) (test code = 752) RED CELL DISTRIBUTION WIDTH 13.0 % 11.7-14.4 (BEAKER) (test code = 412) PLATELET COUNT (AKER) (test 270 K/CU MM 150-450 code = 756) MEAN PLATELET VOLUME (AKER) 9.7 fL 9.4-12.3 (test code = 754) NUCLEATED RED BLOOD CELLS 0 /100 WBC 0-0 (AKER) (test code = 413)
--- OUTSIDE RECORDS SUMMARY | 2020-01-15 00:19 | XMS REPORT | Clinical Summary ---
:1995 Author Organization [facility] Address [address] [place] [address] Care Team Providers Name Role Phone Unavailable Primary Care Provider Unavailable Allergies No Known Allergies Medications Medication Sig Dispensed Refills Start Date End Date Status ARIPiprazole Take 2 mg by 02/19/2019 Act rosey (ABILIFY) 2 MG mouth daily. tablet escitalopram oxalate Take 20 mg by 02/19/2019 Active (LEXAPRO) 20 MG mouth daily. tablet pantoprazole Take 1 tablet (40 30 tablet 0 04/03/2019 05/03/20 19 (PROTONIX) 40 MG mg total) by tablet mouth daily for 30 days. sucralfate Take 10 mLs (1 g 420 mL 0 04/02/2019 05/02/2019 (CARAFATE) 100 mg/mL total) by mouth 4 suspension (four) times daily as needed (for abdominal pain) for up to 30 days. Active Problems Problem Noted Date FB esophagus, initial encounter 04/01/2019 Foreign body in stomach, initial encounter 03/30/2019 Encounters Date Type Specialty Care Team Description 03/29/2019 - Hospital Encounter [facility] FB james rai, initial encounter; 04/02/2019 Medicine Francie Bee Foreign body in stomach, initial encounter; MD Sharon Major depressive disorder, remission sta tus unspecified, unspecified whether recurrent; Nina So Foreign body in intestine and colon, subsequent encounter MD Carlos 03/29/2019 Documentation Internal Medicine Francie Marie MD after 01/14/2019 Social History Tobacco Use Types Packs/Day Years Used Date Current Some Day Smoker 0.25 Smokeless Tobacco: Never Used Tobacco Cessation: Ready to Quit: No; Co unseling Given: Yes Alcohol Use Drinks/Week oz/Week Comments Yes occational maybe once a month more than 5 drinks Sex Assigned at Date Recorded Not on file Job Start Date Occupation Industry Not on file Not on file Not on file Travel History Travel Start Travel End No recent travel history available. Last Filed Vital Signs Vital Sign Reading Time Taken Blood Pressure 116/61 04/02/2019 7:55 AM CDT Pulse 66 04/02/2019 7:55 AM CDT Temperature 37.1 C (98.8 F) 04/02/2019 7:55 AM CDT Respiratory Rate 18 04/02/2019 7:55 AM CDT Oxygen Saturation 97% 04/02/2019 7:55 AM CDT Inhaled Oxygen Concentration - - Weight 60.4 kg (133 lb 1.6 oz) 04/02/2019 6:37 AM CDT Height - - Body Mass Index - - Plan of Treatment Not on file Procedures Procedure Name Priority Date/Time Associated Diagnosis Comme nts XR ABDOMEN / KUB 1 Routine 04/02/2019 8:57 AM Re sults for this VIEW CDT procedure are i n the results section. XR ABDOMEN / KUB 1 Routine 04/01/2019 8:15 PM Re sults for this VIEW CDT procedure are i n the results section. XR ABDOMEN / KUB 1 Routine 04/01/2019 6:50 AM Re sults for this VIEW CDT procedure are i n the results section. XR ABDOMEN / KUB 1 Routine 03/31/2019 8:10 PM Re sults for this VIEW CDT procedure are i n the results section. XR ABDOMEN / KUB 1 Routine 03/31/2019 5:50 PM Re sults for this VIEW CDT procedure are i n the results section. SCREEN, Routine 03/31/2019 5:17 PM Res ults for this URINE CDT procedure are i n the results section. XR ABDOMEN / KUB 1 Routine 03/31/2019 8:46 AM Re sults for this VIEW CDT procedure are i n the results section. XR ABDOMEN / KUB 1 Routine 03/30/2019 9:15 PM Re sults for this VIEW CDT procedure are i n the results section. XR ABDOMEN / KUB 1 Routine 03/30/2019 12:56 PM Re sults for this VIEW CDT procedure are i n the results section. XR ABDOMEN / KUB 1 Routine 03/30/2019 6:50 AM Re sults for this VIEW CDT procedure are i n the results section. BASIC METABOLIC Routine 03/30/2019 5:33 AM Resul ts for this PANEL (7) CDT procedure are i n the results section. CBC (HEMOGRAM ONLY) Routine 03/30/2019 5:33 AM R esults for this CDT procedure are i n the results section. after 01/14/2019 Results XR abdomen / KUB 1 view (04/02/2019 8:57 AM CDT)Only the most recent of9 resultswithin the time period is included. Specimen Narrative Performed At FINAL REPORT GE RIS KUB History provided: Foreign body evaluatio n Comparison exam: 04/01/2019 Yesterday's KUB did not reveal a radiopa que foreign body. Today's KUB also does not reveal a radiopaque foreig n body. Bowel gas pattern is normal. Signed: Mena Sahu MD Report Verified Date/Time:04/02/2019 09:13:00 Reading Location: [facility] Reading Room Procedure Note Interface, External Ris In - 04/02/2019 9:26 AM CDT FINAL REPORT KUB History provided: Foreign body evaluatio n Comparison exam: 04/01/2019 Yesterday's KUB did not reveal a radiopa que foreign body. Today's KUB also does not reveal a radiopaque foreig n body. Bowel gas pattern is normal. Signed: Mena Sahu MD Report Verified Date/Time: 04/02/2019 0 9:13:00 Reading Location: [facility] Reading Room Performing Organization Address City/State/Zipcode Phone Number GE RIS Screen, urine (03/31/2019 5:17 PM CDT) Preg Test, Ur Negative [facility] Specimen Urine Performing Organization Address City/[facility]/Zipcode Phone Number [address] [address] CENTER CBC (Hemogram only) (03/30/2019 5:33 AM CDT) WBC 8.5 3.5 - 10.5 K/L [facility] RBC 4.82 3.93 - 5.22 M/L [facility] Hemoglobin 13.3 11.2 - 15.7 GM/DL [facility] Hematocrit 41.2 34.1 - 44.9 % [facility] MCV 85.5 79.4 - 94.[address] [facility] MCH 27.6 25.6 - 32.2 pg [facility] MCHC 32.3 32.2 - 35.5 GM/DL [facility] RDW 13.0 11.7 - 14.4 % [facility] Platelets 270 150 - 450 K/CU MM [facility] MPV 9.7 9.4 - 12.3 fL [facility] nRBC 0 0 - 0 /100 WBC [facility] Specimen Blood Performing Organization Address City/State/Zipcode Phone Number [facility] [address] [place] [address] CENTER Basic Metabolic Panel (03/30/2019 5:33 AM CDT) Sodium 138 136 - 145 meq/L [facility] Potassium 3.8 3.5 - 5.1 meq/L [facility] Chloride 107 98 - 107 meq/L [facility] CO2 24 22 - 29 meq/L [facility] BUN 14 7 - 21 mg/dL [facility] Creatinine 0.70 0.57 - 1.25 mg/dL [facility] Glucose 78 70 - 105 mg/dL [facility] Calcium 8.9 8.4 - 10.2 mg/dL [facility] EGFR 101Comment: ESTIMATED GFR IS mL/min/1.73 sq m I [facility] NOT ACCURATE CREATININE [facility] CLEARANCE IN PREDICTING GLOMERULAR FILTRATION RATE. ESTIMATED GFR IS NOT APPLICABLE FOR DIALYSIS PATIENTS. Specimen Blood Performing Organization Address City/State/Zipcode Phone Number [facility] [address] [place] [address] CENTER after 01/14/2019
--- NOTE | 2020-01-15 02:27 | ER ---
Nurse's Notes [facility] Name: Mara Farris Age: 24 yrs Sex: Female : 1995 Arrival Date: 01/15/2020 Time: 00:30 Bed Waiting Private MD: Diagnosis: Presentation: 01/14 00:40 Chief complaint: Patient states: Difficulty swallowing food for the last couple days; lp1 states eating a sandwich and feels like something is stuck in her throat, able to tolerate drinking water; Patient states similar symptoms before. Coronavirus screen: Patient denies a cough. Patient denies shortness of breath or difficulty breathing. Patient denies measured and/or subjective temperature greater than 100.4F prior to today's visit. Patient denies travel on a cruise ship or to a country the [facility] currently lists as an affected area. Patient denies contact with known and/or suspected case of COVID-19. Ebola Screen: No symptoms or risks identified at this time. Risk Assessment: Do you want to hurt yourself or someone else? Patient reports no desire to harm self or others. Onset of symptoms was January 14, 2020 at 23:00. 00:40 Method Of Arrival: Ambulatory lp1 00:40 Acuity: LILIANA 3 lp1 00:43 Initial Sepsis Screen: Does the patient meet any 2 criteria? No. Patient's initial lp1 sepsis screen is negative. Does the patient have a suspected source of infection? No. Patient's initial sepsis screen is negative. 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 - Social history:: Smoking status: Patient/guardian denies using tobacco. Screenin:42 Abuse screen: Denies threats or abuse. Denies injuries from another. Nutritional lp1 screening: No deficits noted. Tuberculosis screening: No symptoms or risk factors identified. Fall Risk None identified. Vital Signs: 00:43 BP 113 / 76; Pulse 96; Resp 18; Temp 98.7(O); Pulse Ox 98% on R/A; Weight 108.86 kg lp1 (R); Height 5 ft. 6 in. (167.64 cm); 00:43 Body Mass Index 38.74 (108.86 kg, 167.64 cm) lp1 ED Course: 00:30 Patient arrived in ED. cf2 00:42 Triage completed. lp1 00:42 Arm band placed on right wrist. lp1 Administered Medications: No medications were administered Outcome: 02:26 Patient left the ED. lp1 Signatures: Christie Gamboa RN RN lp1 Stephanie Beauchamp cf2
[2020-01-15 02:54] VITALS: BP 113/76; TEMP 98.7; O2SAT 98
== END 2020-01-15 02:26 | disposition left against medical advice (07) ==
LOC: ER 00:16
DX: R13.10 Dysphagia, unspecified (principal); Z53.21 Procedure and treatment not carried out due to patient leaving prior to being seen by health care provider
CPT/HCPCS: 99281